=== PATIENT | female | born 1980 | race Caucasian/White ===

== ENCOUNTER 2022-12-06 09:50 | Outpatient (AMB) | payer OTHER, SELFPAY ==
--- NOTE | 2022-12-06 10:18 | MHC.PC.OV ---
Vital Signs 12/06/22 10:44 Height 6 ft Weight 216 lb BMI 29.3 BP 144/98 H Blood Pressure Location Lt brachial Position Sitting Pulse 82 Pulse Source Pulse Oximeter Pulse Oximetry (%) 99 Oxygen Delivery Method Room Air Intake Visit Reasons: New patient-BP, PE Intake Note: Pt is here today as a new patient b/p and PE Allergies DAIRY PRODUCTS Adverse Reaction (Unknown, Uncoded 01/24/23 11:24) sensitivity Medication List - Last Reconciled 01/24/23 by Ewa Cano MD bupropion HCl 300 mg PO DAILY clonazepam 0.5 mg PO BID PRN dextroamphetamine-amphetamine 20 mg 1 tab PO BID losartan 50 mg PO DAILY oxcarbazepine 300 mg PO BID Tobacco use date assessed: 12/06/22 Dental Screening Dental Screen Date: 12/06/22 Did you have a dental visit in the last 12 months?: No Was dental information given to patient?: Patient has dentist HPI New patient-BP, PE HPI Details 42-year-old lady, new to practice, here today to establish care with new PCP and for physical exam. She has anxiety depression, and states that she has been diagnosed to have ADD currently on bupropion 300 mg daily, clonazepam 0.5 mg b.i.d. as needed for acute anxiety attacks and Adderall 20 mg 1 tablet twice a day , and oxcarbazepine 600 mg 1 tablet p.o. b.i.d., previously was being seen by Kristen Foster. FORMERLY [facility], [facility]1983 Medical History (Updated 01/05/23 @ 10:35 by Belia Madsen MD) Family history of thyroid disorder Essential hypertension Lumbago with sciatica, right side Anxiety and depression ADD (attention deficit disorder) Surgical History (Updated 12/06/22 @ 11:00 by Ewa Cano MD) Hx of tubal ligation Hx of reduction mammoplasty Family History (Updated 12/06/22 @ 11:07 by Ewa Cano MD) Father Substance use disorder Lung cancer Generalized anxiety disorder Mother Thyroid disorder Maternal Grandfather Alcoholic Paternal Grandfather Substance use disorder Brother Leukemia Housing: House Patient Tobacco Use Status: Former Tobacco user e-Cigarette/Vaping Use: Former Use service: No Current occupational status: student Cognitive needs: No Hearing needs: No Vision needs: No Female Reproductive History Menstrual Age of Menarche: 15 Duration of menses: 3-5 days Date of last menstrual period: 12/05/22 control method: permanent sterilization Permanent Sterilization: BT Questionnaire PHQ-9 Over the last 2 weeks, how often have you been bothered by any of the following problems? 1. Little interest or pleasure in doing things: not at all 2. Feeling down, depressed, or hopeless: several days 3. Trouble falling or staying asleep, or sleeping too much: not at all 4. Feeling tired or having little energy: several days 5. Poor appetite or overeating: not at all 6. Feeling bad about yourself - or that you are a failure or have let yourself or your family down: several days 7. Trouble concentrating on things, such as reading the newspaper or watching television: several days 8. Moving or speaking so slowly that other people could have noticed. Or the opposite - being so fidgety or restless that you have been moving around a lot more than usual: several days 9. Thoughts that you would be better off or of hurting yourself in some way: not at all Total score: 5 Depression Screening Interpretation: Positive (scarlett Foster NP) Depression Screening Follow-up: Existing condition and In treatment Depression Screening Done: Yes 04061 - PHQ-9 Billing: Yes Source: Developed by Drs. Jamil Holland, Elyse Knox, Michael Molina and colleagues, with an educational charanjit from [employer]. Thrive Questionnaire Date Thrive assessed: 12/06/22 I am a: Patient What is your living situation today?: I have a steady place to live Within the past 12 months, did the food you bought not last and you didn't have the money to get more?: Sometimes True Within the past 12 months, did you worry whether your food would run out before you got money to buy more?: Sometimes True Do you have trouble paying for medicines?: No Do you have trouble getting transportation to medical appointments?: No Do you have trouble paying your heating and electricity bill?: No Do you have trouble taking care of your child, family member or friend?: Yes Do you have trouble with day-to-day activities such as bathing, preparing meals, shopping, managing finances, etc.?: No Are you currently unemployed and looking for a job?: No Are you interested in more education?: No TASNEEM-7 AMB Questionnaire TASNEEM-7 Date TASNEEM - 7 assessed: 12/06/22 Feeling nervous, anxious, or on edge: 0 = Not at all Not being able to stop or control worryin = Several days Worrying too much about different things: 0 = Not at all Trouble relaxin = Not at all Being so restless that it is hard to sit still: 0 = Not at all Becoming easily annoyed or irritable: 0 = Not at all Feeling afraid as if something awful might happen: 0 = Not at all Total TASNEEM-7 score (0-4 normal; 5-9 mild; 10-14 moderate; 15-21 severe): 1 Source: Developed by Drs. Jamil Holland, Elyse Knox, Michael Molina and colleagues, with an educational charanjit from [employer]. TASNEEM-7 Assessment Billing TASNEEM-7 Assessment Tool: TASNEEM-7 Assessment 88602 Review of Systems Const Denies body aches, Denies fatigue, Denies fever(s), Denies headache(s) and Denies weakness Eyes Denies change in vision, Denies eye discharge and Denies itchy eyes ENT Denies dizziness, Denies headache(s), Denies nasal congestion, Denies nasal discharge and Denies sore throat Card Denies chest pain, Denies lightheadedness, Denies palpitations and Denies dyspnea Resp Denies chest congestion, Denies cough, Denies dyspnea and Denies wheezing GI Denies abdominal pain, Denies change in bowel habits and Denies heartburn Denies hematuria, Denies urinary frequency, Denies dysuria and Denies urinary urgency Musc Reports no additional complaints Skin/Breast Details: Tattoo left forearm Denies breast pain, Denies breast mass, Denies lesions and Denies rash Neuro Denies dizziness, Denies headache(s) and Denies weakness Psych Reports as per HPI Endo Denies fatigue, Denies polydipsia, Denies polyuria and Denies palpitations Tigre/Lymph Denies easy bruising Aller/Immun Denies itchy eyes, Denies seasonal rhinorrhea and Denies wheezing Physical exam (Primary Care) Vital Signs: Last Vital Signs Pulse 82 12/06/22 10:44 BP 144/98 H 12/06/22 10:44 Pulse Ox 99 12/06/22 10:44 Oxygen Delivery Method Room Air 12/06/22 10:44 BMI result Body Mass Index 29.3 Tobacco/Smoking Status: Tobacco use Status Tobacco use date assessed 12/06/22 12/06/22 10:47 Patient Tobacco Use Status Former Tobacco user 12/06/22 10:47 e-Cigarette/Vaping Use Former Use 12/06/22 10:47 PHQ-9: PHQ-9 Score PHQ-9: Total score 5 12/06/22 11:23 Depression Screening Interpretation: Positive (scarlett Foster NP) Depression Screening Follow-up: Existing condition and In treatment Thrive Assessment: Date of Thrive Assessment Date Thrive assessed 12/06/22 12/06/22 10:20 Const General: no acute distress and alert Nutritional Appearance: not obese Orientation/consciousness: patient oriented x3 HENMT Head: Yes normocephalic and Yes atraumatic Ears: external ears normal, TM's normal bilaterally and EAC's normal General nose exam: Normal external nose present and No nasal discharge present Face and sinus: Yes face symmetric Mouth: Normal oral and palatal mucosa present, lip normal, tongue normal, oropharynx normal and moist mucous membranes Eyes General: appearance normal, both eyes and all related structures Eyelids: Yes eyelids normal Conjunctivae: conjunctivae normal Sclerae: sclerae normal Pupils: Equal, round and reactive pupils present EOM: EOMs intact bilaterally Neck Neck: Yes full ROM, Yes no lymphadenopathy and Yes supple Thyroid: Thyroid normal Chest Breast/axilla palpation: normal palpation of the breasts Resp Effort & Inspection: normal respiratory effort and able to speak in complete sentences Auscultation: clear to auscultation bilaterally Cardio Rate: regular rate Rhythm: regular rhythm Heart sounds: S1 normal heart sound present and S2 normal heart sound present GI Palpation (GI): Soft to palpation, nontender, no guarding and no masses Auscultation: normal bowel sounds General: Yes no CVA tenderness Back/Spine/Pelvis Back: no CVA tenderness and No back tenderness Skin General skin exam: no rashes or lesions noted Neuro General: patient oriented x3, gait normal, moves all extremities, Normal light touch and pain sensation, no focal motor deficits and CN's II-XI intact bilaterally Cranial nerves: Yes Equal, round and reactive pupils present Cognition (Neuro): normal cognition Gait exam (Neuro): Normal gait present Motor exam (neuro): 5/5 motor strength present throughout Extrem General: Yes normal to inspection, Yes full ROM, Yes no joint enlargement, Yes no pedal edema and Yes normal gait Psych Appearance: grossly normal and well kempt Mental Status: mental status grossly normal Speech and movement: Normal speech and movement present Affect: normal affect Attitude: cooperative Thought process: Normal thought process present Thought content: Normal thought content present Insight: Good insight present (Psych) Judgement: Good judgement present (Psych) Office Procedures Flu Questionnaire Does the patient have a severe egg allergy?: No Does the patient have severe life threatening allergies?: No Does the patient have a fever or illness today?: No Has the patient ever had Guillain-[place] Syndrome?: No Has the patient ever had any past reaction to a flu shot?: No Immunizations flu vacc [id number] 6mos up(PF) 60 mcg(15 mcgx4)/0.5 mL IM syringe Performing Provider: Ewa Cano MD Performing Location: [facility] Administered by: Annette Perez CMA on 12/06/22 11:28 Dose Route Admin Location Dispensed Lot Number Expiration Date [employer] Worker 0.5 mL IM Right Deltoid 0.5 mL [id number] 09/02/23 [id number] [employer] VIS Given Date VIS Provided VIS Publication Date 12/06/22 Single Vaccine 20 Eligibility Eligibility Date Funding Source Not [facility] Eligible 12/06/22 Private Assessment and Plan Assessment & Plan (1) Anxiety and depression: Code(s): F41.9 - Anxiety disorder, unspecified; F32.A - Depression, unspecified Plan: Currently being followed by Psychiatry (2) ADD (attention deficit disorder): Code(s): F98.8 - Other specified behavioral and emotional disorders with onset usually occurring in childhood and adolescence Qualifiers: Attention deficit-hyperactivity disorder type: unspecified Hyperactivity presence: present Qualified Code(s): F90.9 - Attention-deficit hyperactivity disorder, unspecified type Plan: Followed by psychiatry (3) Lumbago with sciatica, right side: Code(s): M54.41 - Lumbago with sciatica, right side Qualifiers: Back pain laterality: right Chronicity: unspecified Qualified Code(s): M54.41 - Lumbago with sciatica, right side Plan: Advised to take [id number] Tylenol 650 mg 1 tablet every 8 hours as needed for pain, do stretching exercises. Referred for physical therapy (4) Essential hypertension: Code(s): I10 - Essential (primary) hypertension Plan: Started on losartan 50 mg 1 tablet daily. Blood pressure goal is less than 130/80. Reinforced importance of following a low sodium diet, getting regular exercise, and lowering stress levels. 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 Recommended dental visit every 6 months and regular eye exams, at least every 2 years. Take adequate calcium in diet and vitamin-D 3 at 2000 IU per cap once a day, in addition to weight-bearing exercises to help maintain good muscle tone and weight control. Instructed to do self-breast exam, and recommended to get yearly mammogram, ordered today. Referred to [facility] [place] [place] [facility] for routine Pap and pelvic exam. Flu vaccine given today. Reminded to get her COVID booster. Orders: Orders AMB EKG-In Office 12/06/22 Z13.6 - Encounter for screening for cardiovascular disorders, I10 - Essential (primary) hypertension Lipid Panel 12/06/22 I10 - Essential (primary) hypertension, F98.8 - Other specified behavioral and emotional disorders with onset usually occurring in childhood and adolescence, Z83.49 - Family history of other endocrine, nutritional and metabolic diseases Comprehensive [place]. Panel Fast 12/06/22 I10 - Essential (primary) hypertension, F98.8 - Other specified behavioral and emotional disorders with onset usually occurring in childhood and adolescence, Z83.49 - Family history of other endocrine, nutritional and metabolic diseases PT Evaluation and Treatment 12/06/22 M54.41 - Lumbago with sciatica, right side MM screening mammo BI 12/06/22 Z12.31 - Encounter for screening mammogram for malignant neoplasm of breast TSH reflex Free T4 12/06/22 I10 - Essential (primary) hypertension, F98.8 - Other specified behavioral and emotional disorders with onset usually occurring in childhood and adolescence, Z83.49 - Family history of other endocrine, nutritional and metabolic diseases Influenza [id number] Immunization 12/06/22 Z23 - Encounter for immunization Referrals A AND P TECHNICIAN Referral Z12.4 - Encounter for screening for malignant neoplasm of cervix Medications: New losartan 50 mg PO DAILY 30 tabs 2RF Coding Level of Care Code New Pt Prev Care 40-64y(94038) Diagnoses Anxiety and depression F41.9; F32.A Attention deficit hyperactivity disorder (ADHD), unspecified ADHD type F90.9 Attention deficit-hyperactivity disorder type: unspecified Hyperactivity presence: present Right-sided low back pain with right-sided sciatica, unspecified chronicity M54.41 Back pain laterality: right Chronicity: unspecified Essential hypertension I10 Cervical cancer screening Z12.4 Flu vaccine need Z23 Annual visit for general adult medical examination with abnormal findings Z00.01 Additional Codes TASNEEM-7 Assessment Billing - TASNEEM-7 Assessment Tool: TASNEEM-7 Assessment 34908 ([id number])
[2022-12-06 10:44] VITALS: BP 144/98; PULSE 82; O2SAT 99; BMI 29.3
== END 2022-12-06 11:39 | disposition home or self-care (01) ==
PROVIDERS: PCP Family Medicine; Visit Provider Internal Medicine
DX: Z23 Encounter for immunization (principal)
CPT/HCPCS: 90471; 90686; 99386

== ENCOUNTER 2022-12-28 12:25 | Outpatient (REF) | payer OTHER, SELFPAY ==
--- NOTE | ~2022-12-28 | MM_ITS ---
EXAMINATION: MM SCREENING DIGITAL BREAST TOMOSYNTHESIS, BILATERAL CLINICAL INFORMATION: Screening. Asymptomatic. COMPARISON: Mammography: This is a baseline study. TECHNIQUE: Digital breast tomosynthesis is performed in both the craniocaudal and mediolateral oblique views along with computer-aided detection (CAD). Synthesized 2D images are generated from the tomosynthesis. FINDINGS: There are scattered areas of fibroglandular density (ACR BI-RADS breast composition Category b). In the lower outer quadrant of the left breast, in the anterior depth, there are grouped calcifications which warrant additional mammographic imaging magnification. In the right breast, there are no significant masses, abnormal calcifications, or other abnormalities. MM/MM tomosynthesis screening BI IMPRESSION: Grouped calcifications of the left breast warrants additional mammographic imaging magnification. No mammographic signs of malignancy right breast. ASSESSMENT: BI-RADS BI-RADS 0 - Incomplete: Needs additional Imaging. RECOMMENDATION: Additional views of the left breast. Radiology department staff will contact the patient for additional imaging. Additional Imaging required This examination should not preclude the clinical evaluation of a suspicious palpable abnormality. This patient's information was entered into a reminder system with a target due date for their next mammogram.
== END 2022-12-28 12:26 | disposition home or self-care (01) ==
LOC: HO.MAMMO 12:25
PROVIDERS: PCP Internal Medicine; Visit Provider Internal Medicine
DX: Z12.31 Encounter for screening mammogram for malignant neoplasm of breast (principal)
CPT/HCPCS: 77063; 77067

== ENCOUNTER → 2022-12-28 12:30 | Outpatient (BNV) | payer OTHER, SELFPAY | PROVIDERS: PCP Internal Medicine; Visit Provider Radiology Diagnostic Radiology | DX: Z12.31 Encounter for screening mammogram for malignant neoplasm of breast (principal) | CPT/HCPCS: 77063; 77067 ==

== ENCOUNTER 2023-01-04 12:27 | Outpatient (REF) | payer OTHER, SELFPAY ==
[2023-01-04 16:36] LABS: Alanine Aminotransferase 17 U/L (0-31); Albumin Level 4.2 g/dL (3.5-5.0); Alkaline Phosphatase 75 U/L (39-117); Anion Gap 10 (12-20); Aspartate Amino Transferase 25 U/L (5-31); Bilirubin Total 0.4 mg/dL (0.0-1.0); Blood Urea Nitrogen 6 mg/dL (9-16); Calcium 9.1 mg/dL (8.4-10.2); Carbon Dioxide 25 mmol/L (22-29); Chloride 94 mmol/L (96-108); Cholesterol 208 mg/dL (<200); Estimated Glomerular Filt Rate > 60; Glucose Fasting 82 mg/dL (60-99); HDL Cholesterol 72 mg/dL (>40); LDL Cholesterol Calculated 125 mg/dL (<100); Potassium 4.9 mmol/L (3.3-5.1); Sodium 124 mmol/L (135-145); Total Protein 7.1 g/dL (6.5-8.0); Triglycerides 55 mg/dL (<150)
[2023-01-04 16:51] LABS: TSH reflex Free T4 0.66 uIU/mL (0.32-4.0)
== END 2023-01-04 12:28 | disposition home or self-care (01) ==
LOC: HO.HMGCLDS 12:27
PROVIDERS: PCP Internal Medicine; Visit Provider Internal Medicine
DX: I10 Essential (primary) hypertension (principal); F98.8 Other specified behavioral and emotional disorders with onset usually occurring in childhood and adolescence; Z83.49 Family history of other endocrine, nutritional and metabolic diseases
CPT/HCPCS: 36415; 80053; 80061; 84443

== ENCOUNTER 2023-01-05 13:25 | Outpatient (REF) | payer OTHER, SELFPAY ==
[2023-01-05 16:20] LABS: Anion Gap 13 (12-20); Carbon Dioxide 25 mmol/L (22-29); Chloride 91 mmol/L (96-108); Potassium 4.7 mmol/L (3.3-5.1); Sodium 124 mmol/L (135-145)
== END 2023-01-05 13:26 | disposition home or self-care (01) ==
LOC: HO.HMGCLDS 13:25
PROVIDERS: PCP Internal Medicine; Visit Provider Internal Medicine
DX: E87.1 Hypo-osmolality and hyponatremia (principal)
CPT/HCPCS: 36415; 80051

== ENCOUNTER 2023-01-18 09:00 | Outpatient (REF) | payer OTHER, SELFPAY ==
--- NOTE | ~2023-01-18 | MM_ITS ---
EXAMINATION: MM DIAGNOSTIC DIGITAL MAMMOGRAPHY, LEFT CLINICAL INFORMATION: Calcifications seen left breast on screening exam. COMPARISON: Mammography: 10/28/2022 TECHNIQUE: Digital mammography is performed utilizing spot magnification left CC and mediolateral views. FINDINGS: There are scattered areas of fibroglandular density (ACR BI-RADS breast composition Category b). There are calcifications in the lower outer quadrant of the left breast, anterior depth, which are very loosely grouped, and have a classically benign appearance. There are no linear or branching forms, and there is no suspicious distribution. These findings are benign. No further follow-up recommended. MM/MM diagnostic mammo unilat LT IMPRESSION: No findings suspicious for malignancy left breast. Benign calcifications as detailed, no further follow-up recommended. ASSESSMENT: BI-RADS BI-RADS 2 - Benign Findings RECOMMENDATION: 1 year F/U This patient's information was entered into a reminder system with a target due date for their next mammogram.
== END 2023-01-18 09:01 | disposition home or self-care (01) ==
LOC: HO.MAMMO 09:00
PROVIDERS: PCP Internal Medicine; Visit Provider Internal Medicine
DX: R92.1 Mammographic calcification found on diagnostic imaging of breast (principal)
CPT/HCPCS: 77062; 77065

== ENCOUNTER 2023-01-24 11:16 | Outpatient (AMB) | payer OTHER, SELFPAY ==
[2023-01-24 11:21] VITALS: BP 125/80; PULSE 76; O2SAT 100; BMI 27.2
--- NOTE | 2023-01-24 11:21 | A.OFFPC_ITS ---
Vital Signs 01/24/23 11:21 Height 6 ft Weight 200 lb 6 oz BMI 27.2 BP 125/80 Blood Pressure Location Rt brachial Position Sitting Pulse 76 Pulse Source Pulse Oximeter Pulse Oximetry (%) 100 Oxygen Delivery Method Room Air Intake Visit Reasons: 1M follow up Intake Note: pt is here for a 1 month follow up to repeat labs Allergies DAIRY PRODUCTS Adverse Reaction (Unknown, Uncoded 01/27/23 00:59) sensitivity Medication List - Last Reconciled 01/24/23 by Ewa Cano MD bupropion HCl 300 mg PO DAILY clonazepam 0.5 mg PO BID PRN dextroamphetamine-amphetamine 20 mg 1 tab PO BID losartan 50 mg PO DAILY oxcarbazepine 300 mg PO BID Tobacco use date assessed: 01/24/23 Dental Screening Dental Screen Date: 01/24/23 Did you have a dental visit in the last 12 months?: No Did you have a dental problem in the last 6 months where you did not have access to dental care?: No Was dental information given to patient?: Yes HPI 1M follow up HPI Details 42-year-old lady here today for follow-u p after recent admission for hyponatremia. She was given fluid restriction, and was felt that her ox carbamazepine was to recent for her decreasing sodium level and her dose was decreased to half during her admission. Patient states that she initially felt unwell with her can anxiety attacks after her dose was decreased abruptly. Patient however states that she is feeling much better on current dose of oxcarbazepine. She still is currently taking bupropion and clonazepam at the same dose as well as her Adderall. Has been seen by her psychiatrist after discharge and was continued on current medications. She also has strong family history of her hypothyroidism, and is requesting that she be checked with regards to her thyroid levels. [facility] Medical History (Updated 01/24/23 @ 11:59 by Ewa Cano MD) History of vitamin D deficiency Family history of thyroid disorder Essential hypertension Lumbago with sciatica, right side Anxiety and depression ADD (attention deficit disorder) Surgical History (Updated 12/06/22 @ 11:00 by Ewa Cano MD) Hx of tubal ligation Hx of reduction mammoplasty Family History (Updated 12/06/22 @ 11:07 by Ewa Cano MD) Father Substance use disorder Lung cancer Generalized anxiety disorder Mother Thyroid disorder Maternal Grandfather Alcoholic Paternal Grandfather Substance use disorder Brother Leukemia Housing: House Patient Tobacco Use Status: Former Tobacco user e-Cigarette/Vaping Use: Former Use service: No Current occupational status: student Cognitive needs: No Hearing needs: No Vision needs: No Female Reproductive History Menstrual Age of Menarche: 15 Questionnaire PHQ-9 Over the last 2 weeks, how often have you been bothered by any of the following problems? 1. Little interest or pleasure in doing things: not at all 2. Feeling down, depressed, or hopeless: several days 3. Trouble falling or staying asleep, or sleeping too much: not at all 4. Feeling tired or having little energy: several days 5. Poor appetite or overeating: not at all 6. Feeling bad about yourself - or that you are a failure or have let yourself or your family down: several days 7. Trouble concentrating on things, such as reading the newspaper or watching television: several days 8. Moving or speaking so slowly that other people could have noticed. Or the opposite - being so fidgety or restless that you have been moving around a lot more than usual: several days 9. Thoughts that you would be better off or of hurting yourself in some way: not at all Total score: 5 Depression Screening Interpretation: Positive (seedarleen Foster NP) Depression Screening Follow-up: Existing condition and In treatment Depression Screening Done: Yes 26474 - PHQ-9 Billing: Yes Source: Developed by Drs. Jamil Holland, Elyse Knox, Michael Molina and colleagues, with an educational charanjit from [employer]. Thrive Questionnaire Date Thrive assessed: 12/06/22 AUDIT C Alcohol Use Questionnaire (AUDIT-C) 1. How often do you have a drink containing alcohol?: Never Total Score: 0 TASNEEM-7 AMB Questionnaire TASNEEM-7 Date TASNEEM - 7 assessed: 01/24/23 Feeling nervous, anxious, or on edge: 0 = Not at all Not being able to stop or control worryin = Several days Worrying too much about different things: 0 = Not at all Trouble relaxin = Not at all Being so restless that it is hard to sit still: 0 = Not at all Becoming easily annoyed or irritable: 0 = Not at all Feeling afraid as if something awful might happen: 0 = Not at all Total TASNEEM-7 score (0-4 normal; 5-9 mild; 10-14 moderate; 15-21 severe): 1 Source: Developed by Drs. Jamil Holland, Elyse Knox, Michael Molina and colleagues, with an educational charanjit from [employer]. TASNEEM-7 Assessment Billing TASNEEM-7 Assessment Tool: TASNEEM-7 Assessment 30543 Review of Systems Const Denies body aches, Denies fatigue and Denies headache(s) Eyes Denies change in vision ENT Denies dizziness, Denies headache(s), Denies nasal congestion, Denies nasal discharge and Denies sore throat Card Denies chest pain, Denies lightheadedness, Denies palpitations and Denies dyspnea Resp Denies chest congestion, Denies cough, Denies dyspnea and Denies wheezing GI Denies abdominal pain, Denies change in bowel habits and Denies heartburn Denies urinary frequency, Denies dysuria and Denies urinary urgency Musc Reports no additional complaints Skin/Breast Details: Tattoo left forearm Denies breast pain, Denies breast mass, Denies lesions and Denies rash Neuro Denies dizziness and Denies headache(s) Psych Reports as per HPI Endo Denies fatigue, Denies polydipsia, Denies polyuria and Denies palpitations Tigre/Lymph Denies easy bruising Aller/Immun Denies seasonal rhinorrhea and Denies wheezing Physical exam (Primary Care) Vital Signs: Last Vital Signs Pulse 76 01/24/23 11:21 BP 125/80 01/24/23 11:21 Pulse Ox 100 01/24/23 11:21 Oxygen Delivery Method Room Air 01/24/23 11:21 BMI result Body Mass Index 27.2 Tobacco/Smoking Status: Tobacco use Status Tobacco use date assessed 01/24/23 01/24/23 11:28 Patient Tobacco Use Status Former Tobacco user 01/24/23 11:21 e-Cigarette/Vaping Use Former Use 01/24/23 11:21 Depression Screening Interpretation: Positive (seedarleen Foster NP) Depression Screening Follow-up: Existing condition and In treatment Thrive Assessment: Date of Thrive Assessment Date Thrive assessed 12/06/22 01/24/23 11:21 Const General: no acute distress and alert Nutritional Appearance: not obese Orientation/consciousness: patient oriented x3 [facility] Head: Yes normocephalic and Yes atraumatic Ears: external ears normal General nose exam: Normal external nose present Face and sinus: Yes face symmetric Mouth: Normal oral and palatal mucosa present, oropharynx normal and moist mucous membranes Eyes General: appearance normal, both eyes and all related structures Neck Neck: Yes full ROM, Yes no lymphadenopathy and Yes supple Thyroid: Thyroid normal Chest Breast/axilla palpation: normal palpation of the breasts Resp Effort & Inspection: normal respiratory effort and able to speak in complete sentences Auscultation: clear to auscultation bilaterally Cardio Rate: regular rate Rhythm: regular rhythm Heart sounds: S1 normal heart sound present and S2 normal heart sound present GI Palpation (GI): Soft to palpation, nontender, no guarding and no masses Auscultation: normal bowel sounds General: Yes no CVA tenderness Back/Spine/Pelvis Back: no CVA tenderness and No back tenderness Skin General skin exam: no rashes or lesions noted Neuro General: patient oriented x3, gait normal, moves all extremities, Normal light touch and pain sensation, no focal motor deficits and CN's II-XI intact bilaterally Cognition (Neuro): normal cognition Gait exam (Neuro): Normal gait present Motor exam (neuro): 5/5 motor strength present throughout Extrem General: Yes normal to inspection, Yes full ROM, Yes no joint enlargement, Yes no pedal edema and Yes normal gait Psych Appearance: grossly normal and well kempt Mental Status: mental status grossly normal Speech and movement: Normal speech and movement present Affect: normal affect Attitude: cooperative Thought process: Normal thought process present Thought content: Normal thought content present Assessment and Plan Assessment & Plan (1) Low sodium levels: Code(s): E87.1 - Hypo-osmolality and hyponatremia Plan: Will repeat another basic metabolic panel (2) Family history of thyroid disorder: Code(s): Z83.49 - Family history of other endocrine, nutritional and metabolic diseases Plan: Ordered TSH and free T4 levels (3) History of vitamin D deficiency: Code(s): Z86.39 - Personal history of other endocrine, nutritional and metabolic disease Plan: Will repeat another vitamin-D level. In the meantime, advised to start taking [id number] vitamin D3 at 2000 units daily Orders: Orders Vitamin D 25-OH Total 01/24/23 E87.1 - Hypo-osmolality and hyponatremia, Z83.49 - Family history of other endocrine, nutritional and metabolic diseases, Z86.39 - Personal history of other endocrine, nutritional and metabolic disease Basic Metabolic Panel Fasting 01/24/23 E87.1 - Hypo-osmolality and hyponatremia, Z83.49 - Family history of other endocrine, nutritional and metabolic diseases, Z86.39 - Personal history of other endocrine, nutritional and metabolic disease Coding Level of Care Code Est Pt Level 3 (59941) Diagnoses Low sodium levels E87.1 Family history of thyroid disorder Z83.49 History of vitamin D deficiency Z86.39 Additional Codes TASNEEM-7 Assessment Billing - TASNEEM-7 Assessment Tool: TASNEEM-7 Assessment 04436 ([id number])
== END 2023-01-24 12:20 | disposition home or self-care (01) ==
PROVIDERS: PCP Internal Medicine; Visit Provider Internal Medicine
DX: E87.1 Hypo-osmolality and hyponatremia (principal); Z83.49 Family history of other endocrine, nutritional and metabolic diseases; Z86.39 Personal history of other endocrine, nutritional and metabolic disease
CPT/HCPCS: 99213

== ENCOUNTER 2023-01-24 12:18 | Outpatient (REF) | payer OTHER, SELFPAY ==
[2023-01-24 13:43] LABS: Anion Gap 12 (12-20); Blood Urea Nitrogen 11 mg/dL (9-16); Calcium 9.7 mg/dL (8.4-10.2); Carbon Dioxide 27 mmol/L (22-29); Chloride 103 mmol/L (96-108); Estimated Glomerular Filt Rate > 60; Glucose Fasting 97 mg/dL (60-99); Potassium 4.8 mmol/L (3.3-5.1); Sodium 137 mmol/L (135-145)
[2023-01-24 14:00] LABS: Vitamin D 25-OH Total 26.9 ng/mL (>30)
== END 2023-01-24 12:19 | disposition home or self-care (01) ==
LOC: HO.HMGCLDS 12:18
PROVIDERS: PCP Internal Medicine; Visit Provider Internal Medicine
DX: E87.1 Hypo-osmolality and hyponatremia (principal); Z86.39 Personal history of other endocrine, nutritional and metabolic disease; Z83.49 Family history of other endocrine, nutritional and metabolic diseases
CPT/HCPCS: 36415; 80048; 82306

== ENCOUNTER 2023-04-06 09:19 | Outpatient (REF) | payer OTHER, SELFPAY ==
[2023-04-06 11:45] LABS: MANUAL DIFF FLAG NO
[2023-04-06 11:47] LABS: Basophils Absolute Auto 0.1 X10*3/uL (0.0-0.2); Basophils Percent Auto 1.1 % (0-2); Eosinophils Absolute Auto 0.1 X10*3/uL (0.0-0.4); Hematocrit 38.9 % (37.0-47.0); Hemoglobin 13.7 g/dl (12.0-16.0); Imm Gran Abs Auto 0.02 X10*3/uL (0.00-0.03); Imm Gran Pct Auto 0.3 % (0.0-0.4); Lymphocytes Absolute Auto 1.6 X10*3/uL (1.2-4.9); Lymphocytes Percent Auto 25.6 % (20-40); Mean Corpuscular HGB Conc 35.2 g/dl (31.0-35.0); Mean Corpuscular Hemoglobin 31.1 pg (27.0-33.0); Mean Corpuscular Volume 88.4 fL (80.0-98.0); Mean Platelet Volume 11.2 fL (9.4-12.3); Monocytes Absolute Auto 0.6 X10*3/uL (0.1-1.2); Monocytes Percent Auto 10.4 % (2-11); Neutrophils Absolute Auto 3.8 x10*3/uL (2.0-8.3); Neutrophils Percent Auto 61.6 % (45-73); Platelet Count 253 X10*3/uL (160-400); Red Cell Distribution Width 12.7 % (11.0-16.0); White Blood Count 6.2 X10*3/uL (4.8-10.8)
[2023-04-06 12:39] LABS: Alanine Aminotransferase 17 U/L (0-31); Alkaline Phosphatase 73 U/L (39-117); Anion Gap 13 (12-20); Aspartate Amino Transferase 22 U/L (5-31); Bilirubin Total 0.4 mg/dL (0.0-1.0); Blood Urea Nitrogen 10 mg/dL (9-16); Carbon Dioxide 24 mmol/L (22-29); Chloride 96 mmol/L (96-108); Cholesterol 187 mg/dL (<200); Estimated Glomerular Filt Rate > 60; Glucose Fasting 76 mg/dL (60-99); HDL Cholesterol 68 mg/dL (>40); LDL Cholesterol Calculated 112 mg/dL (<100); Potassium 4.4 mmol/L (3.3-5.1); Sodium 129 mmol/L (135-145); Total Protein 7.1 g/dL (6.5-8.0); Triglycerides 39 mg/dL (<150)
[2023-04-06 12:58] LABS: Vitamin D 25-OH Total 26.1 ng/mL (>30)
[2023-04-06 13:05] LABS: Folate 7.9 ng/mL (> or = 4.0); Vitamin B12 488 pg/mL (200-900)
== END 2023-04-06 09:20 | disposition home or self-care (01) ==
LOC: HO.HMGCLDS 09:19
PROVIDERS: PCP Internal Medicine; Referring Provider Nurse Practitioner Psychiatric/Mental Health; Visit Provider Internal Medicine
DX: I10 Essential (primary) hypertension (principal); D75.89 Other specified diseases of blood and blood-forming organs; Z86.39 Personal history of other endocrine, nutritional and metabolic disease; Z51.81 Encounter for therapeutic drug level monitoring
CPT/HCPCS: 36415; 80053; 80061; 82306; 82607; 82746; 85025

== ENCOUNTER 2023-04-06 13:41 | Outpatient (AMB) | payer OTHER, SELFPAY ==
--- NOTE | 2023-04-06 13:43 | A.OFFPC_ITS ---
Vital Signs 04/06/23 13:58 Height 6 ft Weight 210 lb BMI 28.5 BP 114/78 Blood Pressure Location Lt brachial Position Sitting Pulse 75 Pulse Source Pulse Oximeter Pulse Oximetry (%) 99 Oxygen Delivery Method Room Air Intake Visit Reasons: 2 Month F/U Allergies DAIRY PRODUCTS Adverse Reaction (Unknown, Uncoded 04/06/23 14:23) sensitivity Medication List - Last Reconciled 04/06/23 by Ewa Cano MD bupropion HCl 300 mg PO DAILY clonazepam 0.5 mg PO BID PRN dextroamphetamine-amphetamine 20 mg 1 tab PO BID losartan 50 mg PO DAILY oxcarbazepine 300 mg PO BID Tobacco use date assessed: 04/06/23 Dental Screening Dental Screen Date: 04/06/23 Did you have a dental visit in the last 12 months?: No Was dental information given to patient?: Patient declined HPI 2 Month F/U HPI Details 42-year-old lady with ADD, and anxiety d epression currently followed by psychiatry, here today for follow-up on of her hypertension. She has been taking losartan 50 mg daily with blood pressure controlled on present treatment. She had recent fasting labs which do showed presence of hyponatremia with serum sodium 129, better than last check and vitamin-D deficiency. She has been feeling well, with no nausea, no headache, confusion, no loss of energy fatigue or muscle weakness. [facility] Medical History (Updated 04/08/23 @ 20:40 by Ewa Cano MD) Vitamin D deficiency Macrocytosis without anemia Family history of thyroid disorder Essential hypertension Lumbago with sciatica, right side Anxiety and depression ADD (attention deficit disorder) Surgical History Hx of tubal ligation Hx of reduction mammoplasty Family History Father Substance use disorder Lung cancer Generalized anxiety disorder Mother Thyroid disorder Maternal Grandfather Alcoholic Paternal Grandfather Substance use disorder Brother Leukemia Social History Housing: House Patient Tobacco Use Status: Former Tobacco user e-Cigarette/Vaping Use: Former Use service: No Current occupational status: student Cognitive needs: No Hearing needs: No Vision needs: No Female Reproductive History Menstrual Age of Menarche: 15 Questionnaire PHQ-9 Over the last 2 weeks, how often have you been bothered by any of the following problems? 1. Little interest or pleasure in doing things: not at all 2. Feeling down, depressed, or hopeless: several days 3. Trouble falling or staying asleep, or sleeping too much: not at all 4. Feeling tired or having little energy: several days 5. Poor appetite or overeating: not at all 6. Feeling bad about yourself - or that you are a failure or have let yourself or your family down: not at all 7. Trouble concentrating on things, such as reading the newspaper or watching television: not at all 8. Moving or speaking so slowly that other people could have noticed. Or the opposite - being so fidgety or restless that you have been moving around a lot more than usual: not at all 9. Thoughts that you would be better off or of hurting yourself in some way: not at all Total score: 2 Depression Screening Interpretation: Positive Depression Screening Follow-up: Existing condition, In treatment and Community Mental Health Worker F/U (Followed by Olesya tucker) Depression Screening Done: Yes 34809 - PHQ-9 Billing: Yes Source: Developed by Drs. Jamil Holland, Elyse Knox, Michael Molina and colleagues, with an educational charanjit from [employer]. Thrive Questionnaire Date Thrive assessed: 04/06/23 I am a: Patient What is your living situation today?: I have a steady place to live Within the past 12 months, did the food you bought not last and you didn't have the money to get more?: Never true Within the past 12 months, did you worry whether your food would run out before you got money to buy more?: Never true Do you have trouble paying for medicines?: No Do you have trouble getting transportation to medical appointments?: No Do you have trouble paying your heating and electricity bill?: No Do you have trouble taking care of your child, family member or friend?: No Do you have trouble with day-to-day activities such as bathing, preparing meals, shopping, managing finances, etc.?: No Are you currently unemployed and looking for a job?: No Are you interested in more education?: No THRIVE Score: 0 AUDIT C Alcohol Use Questionnaire (AUDIT-C) 1. How often do you have a drink containing alcohol?: Never Total Score: 0 TASNEEM-7 AMB Questionnaire TASNEEM-7 Date TASNEEM - 7 assessed: 04/06/23 Feeling nervous, anxious, or on edge: 1 = Several days Not being able to stop or control worryin = Not at all Worrying too much about different things: 0 = Not at all Trouble relaxin = Not at all Being so restless that it is hard to sit still: 0 = Not at all Becoming easily annoyed or irritable: 1 = Several days Feeling afraid as if something awful might happen: 0 = Not at all Total TASNEEM-7 score (0-4 normal; 5-9 mild; 10-14 moderate; 15-21 severe): 2 Source: Developed by Drs. Jamil Holland, Elyse Knox, Michael Molina and colleagues, with an educational charanjit from [employer]. TASNEEM-7 Assessment Billing TASNEEM-7 Assessment Tool: TASNEEM-7 Assessment 69377 Review of Systems Const Denies body aches, Denies fatigue and Denies headache(s) Eyes Reports no additional complaints ENT Denies dizziness, Denies headache(s) and Denies nasal congestion Card Denies chest pain, Denies lightheadedness, Denies palpitations and Denies dyspnea Resp Denies chest congestion, Denies cough and Denies dyspnea GI Denies abdominal pain, Denies change in bowel habits and Denies heartburn Denies urinary frequency, Denies dysuria and Denies urinary urgency Musc Reports no additional complaints Skin/Breast Details: Tattoo left forearm Neuro Denies dizziness and Denies headache(s) Psych Reports as per HPI Endo Denies fatigue, Denies polydipsia, Denies polyuria and Denies palpitations Tigre/Lymph Denies easy bruising Physical exam (Primary Care) Vital Signs: Last Vital Signs Pulse 75 04/06/23 13:58 BP 114/78 04/06/23 13:58 Pulse Ox 99 04/06/23 13:58 Oxygen Delivery Method Room Air 04/06/23 13:58 BMI result Body Mass Index 28.5 Tobacco/Smoking Status: Tobacco use Status Tobacco use date assessed 04/06/23 04/06/23 13:44 Patient Tobacco Use Status Former Tobacco user 04/06/23 13:44 e-Cigarette/Vaping Use Former Use 04/06/23 13:44 PHQ-9: PHQ-9 Score PHQ-9: Total score 2 04/06/23 14:42 Depression Screening Interpretation: Positive Depression Screening Follow-up: Existing condition, In treatment and Community Mental Health Worker F/U (Followed by Olesya tucker) Thrive Assessment: Date of Thrive Assessment Date Thrive assessed 04/06/23 04/06/23 14:42 Const General: no acute distress and alert Nutritional Appearance: not obese Orientation/consciousness: patient oriented x3 [facility] Head: Yes normocephalic and Yes atraumatic Ears: external ears normal General nose exam: Normal external nose present Face and sinus: Yes face symmetric Mouth: Normal oral and palatal mucosa present, oropharynx normal and moist muco us membranes Eyes General: appearance normal, both eyes and all related structures Neck Neck: Yes full ROM, Yes no lymphadenopathy and Yes supple Thyroid: Thyroid normal Chest Breast/axilla palpation: normal palpation of the breasts Resp Effort & Inspection: normal respiratory effort and able to speak in complete sentences Auscultation: clear to auscultation bilaterally Cardio Rate: regular rate Rhythm: regular rhythm Heart sounds: S1 normal heart sound present and S2 normal heart sound present GI Palpation (GI): Soft to palpation, nontender, no guarding and no masses Auscultation: normal bowel sounds General: Yes no CVA tenderness Back/Spine/Pelvis Back: no CVA tenderness and No back tenderness Skin General skin exam: no rashes or lesions noted Neuro General: patient oriented x3, gait normal, moves all extremities, no focal motor deficits and CN's II-XI intact bilaterally Cognition (Neuro): normal cognition Gait exam (Neuro): Normal gait present Motor exam (neuro): 5/5 motor strength present throughout Extrem General: Yes normal to inspection, Yes full ROM, Yes no joint enlargement, Yes no pedal edema and Yes normal gait Psych Appearance: grossly normal and well kempt Mental Status: mental status grossly normal Speech and movement: Normal speech and movement present Affect: normal affect Attitude: cooperative Thought process: Normal thought process present Thought content: Normal thought content present Results Reviewed Results Reviewed: Name: Olesya Godwin Age/Sex: 42/F : 1980 Unit#: [id number] Attend Dr: Ewa Cano MD Re04/06/23 Status: REG REF Location: [facility] Disch: SPEC : [id number] OPHELIA: 04/06/23 STATUS: COMP REQ : [id number] RECD: 04/06/23-[address]: Ewa Cano MD COMP: 04/06/23 ENTERED: 04/06/23 [facility] DR: ORDERED: CBC Auto Diff Test Result Flag Reference WBC 6.2 4.8-10.8 X10*3/uL RBC 4.40 4.20-5.50 X10*6/uL HGB 13.7 12.0-16.0 g/dl HCT 38.9 37.0-47.0 % MCV 88.4 80.0-98.0 fL MCH 31.1 27.0-33.0 pg MCHC 35.2 H 31.0-35.0 g/dl RDW 12.7 11.0-16.0 % PLT 253 160-400 X10*3/uL MPV 11.2 9.4-12.3 fL Neut Pct Auto 61.6 45-73 % ImGran Pct Auto 0.3 0.0-0.4 % Lymp Pct Auto 25.6 20-40 % Mccormick Pct Auto 10.4 2-11 % Eos Pct Auto 1.0 0-4 % Baso Pct Auto 1.1 0-2 % NRBC Pct Auto 0.0 0.0-0.2 /100WBC ANC Neut Abs # 3.8 2.0-8.3 x10*3/uL ImGran Abs Auto 0.02 0.00-0.03 X10*3/uL Lymph Abs Auto 1.6 1.2-4.9 X10*3/uL Mccormick Abs Auto 0.6 0.1-1.2 X10*3/uL Eos Abs Auto 0.1 0.0-0.4 X10*3/uL Baso Abs Auto 0.1 0.0-0.2 X10*3/uL NRBC Abs Auto 0.000 0.0-0.012 X10*3/uL SPEC : [id number] OPEHLIA: 04/06/23 STATUS: COMP REQ : [id number] RECD: 04/06/23 [facility] DR: Ewa Cano MD COMP: 04/06/23 ENTERED: 04/06/23 [facility] DR: ORDERED: CMP Fast, Lipid Panel, Vitamin D 25-OH Test Result Flag Reference Sodium 129 L 135-145 mmol/L Potassium 4.4 3.3-5.1 mmol/L CL 96 96-108 mmol/L CO2 24 22-29 mmol/L Gap 13 12-20 BUN 10 9-16 mg/dL Creat 0.67 0.5-1.4 mg/dL EGFR > 60 NOTE: For -[place] individuals, multiply the result by 1.210. Chronic Kidney Disease: Estimated GFR < 60 mL/min/ 1.73m2 Severe Kidney Disease: Estimated GFR < 15 mL/min/1.73m2 FBS 76 60-99 mg/dL CA 9.0 # 8.4-10.2 mg/dL Total Bili 0.4 0.0-1.0 mg/dL AST (GOT) 22 5-31 U/L ALT (GPT) 17 0-31 U/L Protein, Total 7.1 6.5-8.0 g/dL Alb 4.0 3.5-5.0 g/dL Triglyceride 39 <150 mg/dL Desirable Triglyceride: less than 150 mg/dL Borderline High Triglyceride 150-199 mg/dL High Triglyceride: 200-499 mg/dL Very High Triglyceride: greater than or equal to 5OO mg/dL Cholesterol 187 <200 mg/dL Desirable Cholesterol: less than 200 mg/dL Borderline High Cholesterol: 200-239 mg/dL High Cholesterol: greater than 239 mg/dL LDL Calculated 112 H <100 mg/dL Desirable LDL: less than 100 mg/dL Near Optimal/Above Optimal LDL: 110-129 mg/dL Borderline High LDL: 130-159 mg/dL High LDL: 160-189 mg/dL Very High LDL: greater than or equal to 190 mg/dL HDL 68 >40 mg/dL Desirable HDL: greater than 40 mg/dL Note: This HDL assay may give artificially low results in patients with liver disease. Alk Phos 73 39-117 U/L Vit D 25-OH Tot 26.1 L >30 ng/mL Health Based Reference Values* < 20 ng/mL Deficient 20-30 ng/mL Insufficient > 30 ng/mL Sufficient Assessment and Plan Assessment & Plan (1) Essential hypertension: Code(s): I10 - Essential (primary) hypertension Plan: Blood pressure at goal of less than 130/80. Continue with current medication. Reinforced importance of following a low sodium diet, getting regular exercise, and lowering stress levels. (2) Vitamin D deficiency: Code(s): E55.9 - Vitamin D deficiency, unspecified Plan: Prescription sent for high-dose vitamin-D 3 supplements to take once a week for the next 3 months. (3) Low sodium levels: Code(s): E87.1 - Hypo-osmolality and hyponatremia Plan: Hyponatremia improving, felt most likely due to oxcarbazepine , with dose currently being adjusted by her psychiatrist Medications: New cholecalciferol (vitamin D3) 1,250 mcg PO QWEEK 3 months 13 caps 0RF Z86.39 - Personal history of other endocrine, nutritional and metabolic disease Refilled losartan 50 mg PO DAILY 90 tabs 3RF Coding Level of Care Code Est Pt Level 3 (93419) Diagnoses Essential hypertension I10 Vitamin D deficiency E55.9 Low sodium levels E87.1 Additional Codes TASNEEM-7 Assessment Billing - TASNEEM-7 Assessment Tool: TASNEEM-7 Assessment [id number] ([id number])
[2023-04-06 13:58] VITALS: BP 114/78; PULSE 75; O2SAT 99; BMI 28.5
== END 2023-04-06 16:14 | disposition home or self-care (01) ==
PROVIDERS: PCP Internal Medicine; Visit Provider Internal Medicine
DX: I10 Essential (primary) hypertension (principal); E55.9 Vitamin D deficiency, unspecified; E87.1 Hypo-osmolality and hyponatremia; Z86.39 Personal history of other endocrine, nutritional and metabolic disease
CPT/HCPCS: 99213

== ENCOUNTER 2024-01-03 | Outpatient (REF) | payer OTHER, SELFPAY | END 2024-01-03 00:01 | disposition home or self-care (01) | LOC: CF | PROVIDERS: Visit Provider Internal Medicine | DX: Z23 Encounter for immunization (principal); I10 Essential (primary) hypertension | CPT/HCPCS: 90471; 90656; 96127; 99212 ==

== ENCOUNTER 2024-01-03 12:22 | Outpatient (REF) | payer OTHER, SELFPAY ==
[2024-01-03 14:32] LABS: Alanine Aminotransferase 31 U/L (0-31); Anion Gap 12 (12-20); Aspartate Amino Transferase 37 U/L (5-31); Blood Urea Nitrogen 8 mg/dL (9-16); Calcium 8.8 mg/dL (8.4-10.2); Carbon Dioxide 23 mmol/L (22-29); Chloride 99 mmol/L (96-108); Estimated Glomerular Filt Rate > 60; Glucose Fasting 90 mg/dL (60-99); Potassium 4.2 mmol/L (3.3-5.1); Sodium 130 mmol/L (135-145)
[2024-01-03 14:37] LABS: Vitamin D 25-OH Total 66.9 ng/mL (>30)
== END 2024-01-03 12:23 | disposition home or self-care (01) ==
LOC: HO.HMGCLDS 12:22
PROVIDERS: PCP Internal Medicine; Visit Provider Internal Medicine
DX: E55.9 Vitamin D deficiency, unspecified (principal); E87.1 Hypo-osmolality and hyponatremia; I10 Essential (primary) hypertension
CPT/HCPCS: 36415; 80048; 82306; 84450; 84460

== ENCOUNTER 2024-01-03 13:22 | Outpatient (AMB) | payer OTHER, SELFPAY ==
[2024-01-03 13:30] VITALS: BP 116/80; PULSE 91; O2SAT 97; BMI 32.7
--- NOTE | 2024-01-03 13:30 | A.OFFPC_ITS ---
Vital Signs 01/03/24 13:30 Height 6 ft Weight 241 lb BMI 32.7 BP 116/80 Blood Pressure Location Rt brachial Position Sitting Pulse 91 Pulse Source Pulse Oximeter Pulse Oximetry (%) 97 Oxygen Delivery Method Room Air Intake Visit Reasons: Check on blood pressure and Losartan dose Intake Note: Pt is here today for her b/p check and losartan dose Allergies DAIRY PRODUCTS Adverse Reaction (Unknown, Uncoded 01/03/24 13:56) sensitivity Medication List - Last Reconciled 01/03/24 by Ewa Cano MD bupropion HCl XL 300 mg PO DAILY cholecalciferol (vitamin D3) 1,250 mcg PO QWEEK 3 months clonazepam 0.5 mg PO BID PRN dextroamphetamine-amphetamine 20 mg 1 tab PO BID losartan 50 mg PO DAILY oxcarbazepine 300 mg PO BID Tobacco use date assessed: 01/03/24 Dental Screening Dental Screen Date: 01/03/24 Did you have a dental visit in the last 12 months?: No Did you have a dental problem in the last 6 months where you did not have access to dental care?: No Was dental information given to patient?: No HPI Check on blood pressure and Losartan dose HPI Details 43-year-old lady with hypertension cole nunn on losartan 50 mg once a day, here today for follow-up on her blood pressure. She has been feeling well, no complaints at present time, blood pressure today is within normal limits. She had recent fasting labs done just drawn this morning with results still pending. She has been feeling well with no complaints at present time [facility] Medical History Vitamin D deficiency Macrocytosis without anemia Family history of thyroid disorder Essential hypertension Lumbago with sciatica, right side Anxiety and depression ADD (attention deficit disorder) Surgical History Hx of tubal ligation Hx of reduction mammoplasty Family History Father Substance use disorder Lung cancer Generalized anxiety disorder Mother Thyroid disorder Maternal Grandfather Alcoholic Paternal Grandfather Substance use disorder Brother Leukemia Social History Housing: House Patient Tobacco Use Status: Former Tobacco user e-Cigarette/Vaping Use: Former Use service: No Current occupational status: student Cognitive needs: No Hearing needs: No Vision needs: No Female Reproductive History Menstrual Age of Menarche: 15 Questionnaire PHQ-9 Over the last 2 weeks, how often have you been bothered by any of the following problems? 1. Little interest or pleasure in doing things: several days 2. Feeling down, depressed, or hopeless: several days 3. Trouble falling or staying asleep, or sleeping too much: not at all 4. Feeling tired or having little energy: several days 5. Poor appetite or overeating: several days 6. Feeling bad about yourself - or that you are a failure or have let yourself or your family down: not at all 7. Trouble concentrating on things, such as reading the newspaper or watching television: not at all 8. Moving or speaking so slowly that other people could have noticed. Or the opposite - being so fidgety or restless that you have been moving around a lot more than usual: not at all 9. Thoughts that you would be better off or of hurting yourself in some way: not at all Total score: 4 46762 - PHQ-9 Billing: Yes (sees Patricia Marshall at [facility] by telehealth) Source: Developed by Drs. Jamil Holland, Elyse Konx, Michael Molina and colleagues, with an educational charanjit from [employer]. Thrive Questionnaire Date Thrive assessed: 01/03/24 I am a: Patient What is your living situation today?: I have a steady place to live Within the past 12 months, did the food you bought not last and you didn't have the money to get more?: I choose not to answer this question Within the past 12 months, did you worry whether your food would run out before you got money to buy more?: Never true Do you have trouble paying for medicines?: No Do you have trouble getting transportation to medical appointments?: No Do you have trouble paying your heating and electricity bill?: No Do you have trouble taking care of your child, family member or friend?: No Do you have trouble with day-to-day activities such as bathing, preparing meals, shopping, managing finances, etc.?: No Are you currently unemployed and looking for a job?: No Are you interested in more education?: No Please select the resources that you would like help with: None Currently or been in a relationship where the following occur: No concerns reported THRIVE Score: 0 AUDIT C Alcohol Use Questionnaire (AUDIT-C) 1. How often do you have a drink containing alcohol?: Never Total Score: 0 TASNEEM-7 AMB Questionnaire TASNEEM-7 Date TASNEEM - 7 assessed: 04/06/23 Feeling nervous, anxious, or on edge: 1 = Several days Not being able to stop or control worryin = Several days Worrying too much about different things: 1 = Several days Trouble relaxin = Several days Being so restless that it is hard to sit still: 0 = Not at all Becoming easily annoyed or irritable: 1 = Several days Feeling afraid as if something awful might happen: 0 = Not at all Total TASNEEM-7 score (0-4 normal; 5-9 mild; 10-14 moderate; 15-21 severe): 5 Source: Developed by Drs. Jamil Holland, Elyse Knox, Michael Molina and colleagues, with an educational charanjit from [employer]. TASNEEM-7 Assessment Billing TASNEEM-7 Assessment Tool: TASNEEM-7 Assessment 70347 Review of Systems Const Denies fatigue and Denies headache(s) Eyes Denies change in vision ENT Denies dizziness, Denies headache(s) and Denies nasal congestion Card Denies chest pain, Denies lightheadedness, Denies palpitations and Denies dyspnea Resp Denies chest congestion, Denies cough and Denies dyspnea GI Denies abdominal pain, Denies change in bowel habits and Denies heartburn Denies urinary frequency, Denies dysuria and Denies urinary urgency Musc Reports no additional complaints Neuro Denies dizziness and Denies headache(s) Psych Reports as per HPI Endo Denies fatigue, Denies polydipsia, Denies polyuria and Denies palpitations Physical exam (Primary Care) Vital Signs: Last Vital Signs Pulse 91 01/03/24 13:30 BP 116/80 01/03/24 13:30 Pulse Ox 97 01/03/24 13:30 Oxygen Delivery Method Room Air 01/03/24 13:30 BMI result Body Mass Index 32.7 Tobacco/Smoking Status: Tobacco use Status Tobacco use date assessed 01/03/24 01/03/24 13:32 Patient Tobacco Use Status Former Tobacco user 01/03/24 13:32 e-Cigarette/Vaping Use Former Use 01/03/24 13:32 PHQ-9: PHQ-9 Score PHQ-9: Total score 4 01/03/24 14:04 Thrive Assessment: Date of Thrive Assessment Date Thrive assessed 01/03/24 01/03/24 13:32 Currently or been in a relationship where the following occur: No concerns reported Const General: no acute distress and alert Orientation/consciousness: patient oriented x3 HENMT Head: Yes normocephalic Face and sinus: Yes face symmetric Mouth: Normal oral and palatal mucosa present, oropharynx normal and moist muco us membranes Eyes General: appearance normal, both eyes and all related structures Neck Neck: Yes full ROM, Yes no lymphadenopathy and Yes supple Resp Effort & Inspection: normal respiratory effort and able to speak in complete sentences Auscultation: clear to auscultation bilaterally Cardio Rate: regular rate Rhythm: regular rhythm Heart sounds: S1 normal heart sound present and S2 normal heart sound present Skin General skin exam: no rashes or lesions noted Neuro General: patient oriented x3, gait normal, moves all extremities, no focal motor deficits and CN's II-XI intact bilaterally Cognition (Neuro): normal cognition Gait exam (Neuro): Normal gait present Motor exam (neuro): 5/5 motor strength present throughout Extrem General: Yes normal to inspection, Yes full ROM, Yes no joint enlargement, Yes no pedal edema and Yes normal gait Coding Level of Care Code Est Pt Level 3 (42266) Diagnoses Essential hypertension I10 Needs flu shot Z23 Additional Codes TASNEEM-7 Assessment Billing - TASNEEM-7 Assessment Tool: TASNEEM-7 Assessment 37892 ([id number]) Assessment & Plan Assessment & Plan (1) Essential hypertension: Code(s): I10 - Essential (primary) hypertension Category: Medical Plan: Blood pressure stable and controlled on losartan 50 mg per tablet. Will continue on present treatment. Reinforced importance of following a healthy diet and getting regular exercise. Had recent fasting labs done with results still pending (2) Needs flu shot: Code(s): Z23 - Encounter for immunization Plan: Flu vaccine given today Orders: Orders Influenza 8630-1900 Immunization Today Z23 - Encounter for immunization Medications: New Fluarix Triv [id number] (PF) (flu vacc [id number] 6mos up(PF)) 0.5 mL IM ONCE 0.5 mL 0RF NS Z23 - Encounter for immunization
== END 2024-01-03 14:24 | disposition home or self-care (01) ==
LOC: HO.HMCC 13:23
PROVIDERS: PCP Internal Medicine; Visit Provider Internal Medicine
DX: I10 Essential (primary) hypertension (principal); Z23 Encounter for immunization

== ENCOUNTER 2024-03-31 09:15 | Outpatient (REF) | payer OTHER, SELFPAY ==
[2024-03-31 14:35] LABS: Influenza A PCR NEGATIVE (Negative); Influenza B PCR NEGATIVE (Negative); Resp Syncy Virus RNA Qual PCR NEGATIVE (Negative); SARS COV2 PCR INHOUSE NEGATIVE (Negative)
--- OUTSIDE RECORDS SUMMARY | 2024-03-31 15:51 | XMS_ITS | Referral Summary ---
Author Organization [facility] Address [address] [place] [address] Care Team Providers Care Recycler Forklift Driver Truck Driver Name Role Phone Melania Cormier Primary Care Provider [phone] Allergies No known active allergies Medications buPROPion [...] on file Medical Devices Implanted Type Area Dowel Inserting Machine Operator Device Identifier Shelf Expiration Date Model / Serial / Lot Catheter Glidepath Hemodialysis 14.5fr X 23cm - [id number] Implanted:Qty: 1 on 05/18/2020 by Alexandro Espinal MD at [facility] Catheter Right: Chest Wall [employer] [id number] 12/02/2021 [id number] / / [id number] Insurance [facility] * Guarantor: Marrow Transplant, Unv Bone Account Type Relation to Patient Date of Phone Billing Address Donor Bone Marrow Recipient [address] [facility] Bone Marrow [place] [address] [facility] HMO/POS Care Teams Recycler Forklift Driver Truck Driver Relationship Specialty Start Date End Date Melania Cormier [address], [address] [place], [place] [phone] PCP - General Family Medicine 04/21/20
--- OUTSIDE RECORDS SUMMARY | 2024-03-31 15:51 | XMS_ITS | Clinical Summary ---
Author Organization [facility] Address [address] [place] [address] Care Team Providers Care Skein Tier Name Role Phone Melania Cormier Primary Care Provider [phone] Allergies No known active allergies Medications buPROPion [...] this topic Medical Devices Implanted Type Area Cage Cashier Device Identifier Shelf Expiration Date Model / Serial / Lot Catheter Glidepath Hemodialysis 14.5fr X 23cm - [id number] Implanted:Qty: 1 on 05/18/2020 by Alexandro Espinal MD at [facility] Catheter Right: Chest Wall [employer] [id number] 12/02/2021 [id number] / / [id number] Insurance [employer] * Guarantor: Marrow Transplant, Unv Bone Account Type Relation to Patient Date of Phone Billing Address Donor Bone Marrow Recipient [address] [facility] Bone Marrow [place] [address] [facility] HMO/POS Care Teams Skein Tier Relationship Specialty Start Date End Date Melania Cormier [facility] [address], [address] [place] [address] PCP - General Family Medicine 04/21/20
--- OUTSIDE RECORDS SUMMARY | 2024-03-31 15:51 | XMS_ITS | Encounter Summary ---
Author Organization [facility] Address [address] [place] [address] Care Team Providers Care Dining Service Supervisor Name Role Phone Rosalinda Cormierkatina Farley Primary Care Provider [phone] Encounter Details Date Type Department Care Team (Late st Contact Info) Description 05/07/2020 Orders Only [facility] [address] [place] [address] Mara Pate, PharmD [address] [place], [place] [id number] Social History Tobacco Use Types Packs/Day Years [...] on filedocumented in this encounter Care Teams Dining Service Supervisor Relationship Specialty Start Date End Date Melania Cormier [facility] [address] [place] [address], [address] [place] [address] PCP - General Family Medicine 04/21/20 documented as of this encounter
--- OUTSIDE RECORDS SUMMARY | 2024-03-31 15:51 | XMS_ITS | Encounter Summary ---
Author Organization [facility] Address [address] [place] [address] Care Team Providers Care Industrial Trainer Name Role Phone Melania Cormier Primary Care Provider [phone] Encounter Details Date Type Department Care Team (Late st Contact Info) Description 05/03/2020 Orders Only [facility] [address] [place], [place] [phone] Adia Mendenhall PA [address] [place] [address] Stem cell donor (Primary Dx) Social History [...] or need for rescheduling, in accordance with [facility] policies and [facility] guidelines. Request: Pheresis Catheter History of [...] of this encounter Results * Due to [place] state law, this organization might not be sharing negative HIV tests. * COVID-19 PCR, Pre-Procedure (Asymptomatic), GENERAL WAREHOUSE ASSOCIATE/OP/Saliva (05/14/2020 12:13 PM EST) SARS CoV 2 RNA, RT PCR Not Detected Not Detected ALICE HER QUANT STUDIO 05/14/2020 7:54 PM EST [facility] Comment:A Not Detected (Nega [...] determined by the Molecular Virology Laboratory at [facility] under CLIA [id number]. They have not been cleared or approved by the U.S. Food and Drug Administration (FDA). FDA Policy for Diagnostic Tests for Coronavirus Disease-2019 during the Public Health Emergency issued May 19, 2019, is followed. us [facility] BODY FLUIDS AND STOOLS ORDER CORWIN Final Result [facility] [address] [place] [address], documented in this encounter Visit Diagnoses Diagnosis Stem cell donor- Primary documented in this encounter Care Teams Industrial Trainer Relationship Specialty Start Date End Date Melania Cormier [facility] Medicine [address] [place] [address], [address] [place] [address] PCP - General Family Medicine 04/21/20 documented as of this encounter
--- OUTSIDE RECORDS SUMMARY | 2024-03-31 15:52 | XMS_ITS | Encounter Summary ---
Author Organization [facility] Address [phone] [facility] [place] [address] Care Team Providers Care Traffic Observer Name Role Phone Melania Cormier DO Unavailable Annette WallsM Unavailable Malou Peguero I BORDER PATROL AGENT Unavailable [phone] Demetrio Jacobo DO Unavailable Jamil Schneider MD Unavailable [phone] Pam Perez MD Unavailable Kristina Mendoza DO Unavailable Kris Altamirano MD Unavailable Jacob Schneider MD Unavailable [phone] Aaliyah Maldonado MD Unavailable [phone] Doug Shoemaker MD Unavailable Melania Cormier DO Primary Care Provider [phone] Encounter Details Date Type Department Care Team (Late st Contact Info) Description 08/16/2018 Procedure Pass OR Admitting Dept - Virtual Department [address] [place] [address] Social History Tobacco Use Types Packs/Day Years Used Date Smoking Tobacco: Former Cigarettes 0 07/19/1998 - 07/19/2005 Smokeless Tobacco: Never Alcohol Use Standard Drinks/Week Comments Yes 2 (1 standard drink = 0.6 oz pur e alcohol) Sex and Gender Information Value Date Recorded Sex Assigned at Not on file Gender Identity Not on file Sexual Orientation Not on file documented as of this encounter Plan of Treatment Not on file documented as of this encounter Visit Diagnoses Not on filedocumented in this encounter Additional Health Concerns Assessment Noted Time PHQ-2 Depression Total Score: 1 08/18/19 18 11:26 AM EDT documented as of this encounter Care Teams Traffic Observer Relationship Specialty Start Date End Date Melania Cormier DO [address] [address] PCP - General 12/19/16 Melania Cormier DO [address] [place] [address] Historical LMR Provider 12/18/16 Annette Walls CNM [address] [place] [address] Historical LMR Provider 12/18/16 2 Malou Peguero CNP [address] [address] Historical LMR Provider 12/18/16 03/12/21 Demetrio Jacobo DO [address] [place] [address] Orthopedics & Sports Medicine, [place] [address] Historical LMR Provider 12/18/16 03/12/21 Jamil Schneider MD [address] [place] [phone] [email or web address] Historical LMR Provider 12/18/16 03/12/21 Pam Perez MD 22 [facility] [address] [place] [address] [email or web address] Historical LMR Provider 12/18/16 Kristian Mendoza DO [address] [place] [address] Historical LMR Provider 12/18/16 2 Kris Altamirano MD [address] [facility] 7 [place] [phone] Historical LMR Provider 12/18/16 2 Jacob Schneider MD [address] [facility] [address] [place] [phone] [email or web address] Historical LMR Provider 12/18/16 03/12/21 Aaliyah Maldonado MD [address] [phone] Historical LMR Provider 12/18/16 2 Doug Shoemaker MD [address] [place] [address] Historical LMR Provider 12/18/16 2 documented as of this encounter Additional Source Comments The information contained in this document represents components of the legal health record. It is not the complete legal health record.[facility]
--- OUTSIDE RECORDS SUMMARY | 2024-03-31 15:52 | XMS_ITS | Clinical Summary ---
Author Organization [facility] Address [phone] [address] [place] [address] Care Team Providers Care Therapy Manager Name Role Phone Melania Cormier DO Unavailable [phone] Pam Perez MD Unavailable Melania Cormier DO Primary Care Provider [phone] Allergies Active Allergy Reactions Criticality Noted Date Comments Milk Containing Products (Dairy) Medications Medication Sig Dispensed Refills Start Date End Date Status ibuprofen (ADVIL,MOTRIN) 200 MG tablet Take 200 mg by mouth every 6 (six) hours as needed for pain (specific location in comments). Active polyethylene glycol (MIRALAX) 17 gram/dose powder Take 17 g by mouth daily as needed. Active docusate sodium (COLACE) 100 MG capsule Take 100 mg by mouth daily as needed. Active buPROPion (WELLBUTRIN XL) 150 MG ER 24 hr tablet Take 300 mg by mouth daily. Active dextroamphetamine 5 MG tablet Take 5 mg by mouth 2 (two) times a day. Active acetaminophen (TYLENOL) 325 mg tablet Take 2 tablets (650 mg total) by mouth every 4 (four) hours as needed for mild pain. 0 08/16/2018 Active ibuprofen (ADVIL,MOTRIN) 200 MG tablet Take 3 tablets (600 mg total) by mouth every 6 (six) hours as needed for pain (specific location in comments). 08/16/2018 Active oxyCODONE 5 MG immediate release tablet Take 1-2 tablets (5-10 mg total) by mouth every 4 (four) hours as needed for moderate pain. Partial fill ok 14 tablet 08/16/2018 Active LORazepam (ATIVAN) 0.5 MG tablet 02/13/2019 Active dextroamphetamine-amph etamine (ADDERALL) 20 mg Tab tablet 20 mg 2 (two) times a day. 02/12/2019 Active PROCTOSOL HC 2.5 % rectal creamIndications:Recta l spasm USE PER RECTUM 2 TIMES A DAY FOR 14 DAYS 28.35 g 1 03/07/2019 Active ondansetron (ZOFRAN-ODT) 8 MG disintegrating tablet Take 1 tablet (8 mg total) by mouth every 8 (eight) hours as needed for nausea. 10 tablet 02/24/2020 Active Active Problems Problem Noted Date Diagnosed Date Rectal spasm 12/11/2017 Assessment & Plan (12/11/2017 1:59 PM EDT): The patient presented today for evaluation of worsening anorectal pain and hemorrhoid flare-ups. She has rectal spasm and posterior anal fissure. Plan is for rectal exam under anesthesia. See plan for anal fissure. Chronic posterior anal fissure 12/11/2017 Assessment & Plan (12/11/2017 1:57 PM EDT): The patient has rectal spasm and posterior anal fissure on exam. Hemorrhoidal disease is minimal. She could barely tolerate digital exam today and could not tolerate anoscopy. Plan is for anorectal exam under anesthesia, anoscopy, possible Botox sphincterotomy, possible removal of hemorrhoids. I discussed the risks and benefits of rectal exam under anesthesia and anoscopy/sphincterotomy/hemorrhoidectomy including but not limited to the risks of infection, bleeding, recurrence, damage to anal sphincter, loss of continence, need for further surgery, and prolonged significant pain. The patient understands these risks and wishes to proceed. Weight gain 12/11/2017 Assessment & Plan (12/11/2017 2:15 PM EDT): The patient says she has been gaining weight and is bothered by this. We discussed some different methods for weight loss. Recurrent major depressive disorder 08/17/2017 Overview (08/17/2017): Kristen Evi psyNP Assessment & Plan (12/11/2017 2:00 PM EDT): The patient's depression may affect the presenting problem of surgical procedure (s) and may increase the risk of slow healing wound (s), infection (s) and the need to assure stability to optimize decisions and wound care. Stable and/or controlled chronic conditions may reduce complications associated with your chronic condition (s). GERD without esophagitis 05/17/2017 Assessment & Plan (12/11/2017 1:58 PM EDT): The patient's GERD may affect the presenting issue of surgical procedure (s) and may increase the risk of slow healing wound (s), infection (s), aspiration altering the effects of anesthetics, kidney, lung and/or heart problems. Stable and/or controlled chronic conditions may reduce complications associated with your chronic condition (s). Insomnia 05/17/2017 Immunizations Name Administration Dates Next Due COVID-19 (Pre-12/25) Pfizer Vaccine, mRNA, PF 07/13/2020,06/22/2020 DTaP 08/27/1986, 4,04/28/1982,02/17,1981 Hepatitis B 12/05/1993,02/03/1993,12/03/1992 Influenza Quadrivalent Prese rvative Free IM 03/04/2020 MMR 07/21/2011,01/17/1983 Meningococcal MCV4P 07/21/2011 PPD Test 10/28/2018 Polio - OPV 08/27/1986, 4,02/17/1982,11/25 Tdap 07/21/2011 Family History Medical History Relation Comments Anxiety disorder Father Gout Father Relation Status Comments Brother alive, healthy Father Alive alive, healthy, has gout Mother Alive alive healthy Sister alive, healthy Social History Tobacco Use Types Packs/Day Years Used Date Smoking Tobacco: Former Cigarettes 0 07/19/1998 - 07/19/2005 Smokeless Tobacco: Never Alcohol Use Standard Drinks/Week Comments Yes 2 (1 standard drink = 0.6 oz pur e alcohol) Education Answer Date Recorded Are you interested in more education? Not on keysha e 06/30/2022 Are you concerned about learning? Not on file 06/30/2022 No 06/30/2022 No 06/30/2022 Digital Access Answer Date Recorded No 07/31/2022 No 07/31/2022 No 07/31/2022 Reliable internet access at home? Not on file 07/31/2022 Device with a working camera? Not on file Sex and Gender Information Value Date Recorded Sex Assigned at Not on file Gender Identity Not on file Sexual Orientation Not on file Last Filed Vital Signs Vital Sign Reading Time Taken Comments Blood Pressure 132/100 03/21/2019 3:51 PM EST Pulse 98 03/21/2019 3:51 PM EST Temperature 37.6 ??C (99.6 ??F) 02/25/2020 9:35 AM ES T Respiratory Rate 14 08/16/2018 11:15 AM EDT Oxygen Saturation 97% 03/21/2019 3:51 PM EST Inhaled Oxygen Concentration - - Weight 107.5 kg (237 lb) 03/21/2019 3:51 PM EST Height 183.9 cm (6' 0.4 ) 03/17/2019 2:12 PM EST Body Mass Index 31.79 03/17/2019 2:12 PM EST Plan of Treatment Health Maintenance Due Date Last Done Comments SMOKING Hx and SMOKELESS TOBACCO SCREENING 1994 HEPATITIS B SCREENING 10/19/1999 HEPATITIS C SCREENING 10/19/1999 DEPRESSION SCREENING 08/17/2018 08/17/2017 Adult Td,Tdap Booster 07/20/2021 07/21/2011 MAMMOGRAM 2021 PAP SMEAR 03/20/2023 03/20/2018, 03/20/2018, 01/04/2012 INFLUENZA VACCINE (#1) 2023 03/04/2020 COVID-19 VACCINE (2023-2 5 season) 2023 07/11/2021, 07/13/2020, 06/22/2020 HEPATITIS B VACCINES Completed 12/05/1993, 02/03/1993, 12/03/1992 MENINGOCOCCAL VACCINES (ACWY) Aged Out 07/21/2011 No longer eligible based on patient's age to complete this topic HEPATITIS A VACCINES Aged Out No long er eligible based on patient's age to complete this topic HIB VACCINES Aged Out No longer eligi ble based on patient's age to complete this topic PNEUMOCOCCAL VACCINES (0-49 years) Aged Out No longer eligible b ased on patient's age to complete this topic Medical Devices Implanted Type Area Regulatory Compliance Director Device Identifier Shelf Expiration Date Model / Serial / Lot Jaw Procedures Procedure Name Priority Date/Time Associated Diagnosis Comments PAP TEST Routine 03/20/2018 12:00 AM EST from Last 3 Months or Most Recently Relevant to Health Maintenance Results * Pap Smear (03/20/2018 12:00 AM EST) 03/20/2018 03/21/2018 12: 48 PM EST Narrative SEE NARRATIVE - 03/28/2018 12:36 PM EST [address] [address] Office Spec: Lilli Bansal MD ?? RECOVERY ENGINEER Cytology Report FINAL DIAGNOSIS A. ??PAP SMEAR (SUREPATH) CE: SPECIMEN ADEQUACY: Satisfactory for evaluation; transformation zone present. INTERPRETATION: NEGATIVE FOR INTRAEPITHELIAL LESION OR MALIGNANCY. Electronically Signed Out By: ??LEYDA Villatoro(ASCP) Elisabet CRABTREE(ASCP) The Pap test is a screening test primarily for squamous cancers and precursors and has associated false-negative and false-positive results. ??New technologies such as liquid-based preparations may decrease but will not eliminate all false-negative results. ??Regular sampling and follow-up of unexplained clinical signs and symptoms are recommended to minimize false negative results. PROCEDURES/ADDENDA HPV Testing (Requested) Ordered Date: 03/21/2018 ? HPV Test Negative for high-risk human papillomavirus types 16, 18, 45 and the Other high risk probe set (Includes 31, 33, 35, 39, 51, 52, 56, 58, 59, 66, 68) by [employer] Onclarity HR-HPV analysis. Clinical correlation is advised. This HPV test was performed at [facility], [address] [place] [address]. This test has been FDA approved for SurePath cervical cytology specimens. The accuracy and precision of this test for all other specimen sources has been verified in the Cytopathology Laboratory of the [facility] and has not been cleared or approved by the U.S. Food and Drug Administration. Clinical correlation is advised. ? CLINICAL HISTORY Date of Last Menstrual Period: ??N/A Contraceptive History: ??IUD Other Clinical Conditions: ??Screening Pap SPECIMEN SOURCE A: PAP SMEAR (SUREPATH) CE Patient Name: ??OLESYA GODWIN : ??1980 (Age: 37) Sex: ??F Institution: [facility] Location: ??[facility] Date of Collection: ??03/20/2018 Date of Reported: ??03/28/2018 12:36 Results to: Pam Perez MD Pam Perez MD CYTOLOGY ORDERABLES SEE NARRATIVE from Last 3 Months or Most Recently Relevant to Health Maintenance Advance Directives * Full Code (Presumed) (Latest Code Status on File) Date Activated Date Inactivated Comments 02/20/2018 11:02 AM 02/20/2018 5:59 PM Care Teams Therapy Manager Relationship Specialty Start Date End Date Melania Cormier DO [address] [place] [address] PCP - General 12/19/16 Melania Cormier DO [address] [place] [address] Historical LMR Provider 12/18/16 Pam Perez MD [address] [place] [address] Historical LMR Provider 12/18/16 Additional Source Comments The information contained in this document represents components of the legal health record. It is not the complete legal health record.[facility]
== END 2024-03-31 09:16 | disposition home or self-care (01) ==
LOC: HO.LAB 09:15
PROVIDERS: Nurse Practitioner Family; PCP Internal Medicine
DX: J06.9 Acute upper respiratory infection, unspecified (principal); R09.89 Other specified symptoms and signs involving the circulatory and respiratory systems
CPT/HCPCS: 0241U; 99212

== ENCOUNTER 2024-03-31 09:15 | Outpatient (AMB) | payer OTHER, SELFPAY ==
[2024-03-31 10:09] VITALS: BP 120/80; PULSE 83; TEMP 36.9; O2SAT 98; BMI 32.7
--- NOTE | 2024-03-31 10:09 | MHC.OFFWIV ---
Intake Vital Signs 03/31/24 10:09 Height 6 ft Weight 241 lb BMI 32.7 BP 120/80 Blood Pressure Location Lt brachial Position Sitting Pulse 83 Pulse Source Pulse Oximeter Temp 98.5 F Temp Source Oral Pulse Oximetry (%) 98 Intake Visit Reasons: EP Upper respiratory symptoms Intake Note: pt is here for c/o coughing, congestion, fatigued Patient Tobacco Use Status: Former Tobacco user Allergies DAIRY PRODUCTS Adverse Reaction (Unknown, Uncoded 03/31/24 10:09) sensitivity Do you need a note to return to daycare/school/sports/work: No HPI HPI Comments History of Present Illness Details 43 y/o female patient who presents to the [facility] in clinic with c/o Sore throat since last week. C/o chest congestion, nasal congestion and cough. [facility] Medical History (Updated 03/31/24 @ 11:36 by Heavenly Hood NP) Acute respiratory disease Vitamin D deficiency Macrocytosis without anemia Family history of thyroid disorder Essential hypertension Lumbago with sciatica, right side Anxiety and depression ADD (attention deficit disorder) Surgical History Hx of tubal ligation Hx of reduction mammoplasty Family History Father Substance use disorder Lung cancer Generalized anxiety disorder Mother Thyroid disorder Maternal Grandfather Alcoholic Paternal Grandfather Substance use disorder Brother Leukemia Social History Housing: House Patient Tobacco Use Status: Former Tobacco user e-Cigarette/Vaping Use: Former Use service: No Current occupational status: student Cognitive needs: No Hearing needs: No Vision needs: No Female Reproductive History Menstrual Age of Menarche: 15 Review of Systems Const All systems reviewed & are unremarkable except as noted in HPI and below Physical Exam Vital Signs: Last Vital Signs Temp 98.5 F 03/31/24 10:09 Pulse 83 03/31/24 10:09 BP 120/80 03/31/24 10:09 Pulse Ox 98 03/31/24 10:09 BMI result Body Mass Index 32.7 Const General: cooperative and no acute distress Orientation/consciousness: patient oriented x3 HEENT Head: Yes normocephalic Ears: external ears normal and TM abnormal with fluid behind the TM bilateral General nose exam: Abnormal mucous membranes and turbinates present boggy and erythematous and Nasal discharge present Face and sinus: Yes sinuses nontender Mouth: moist mucous membranes Throat: Yes postnasal drainage Resp Effort & Inspection: normal respiratory effort and able to speak in complete sentences Auscultation: clear to auscultation bilaterally Cardio Heart sounds: S1 normal heart sound present and S2 normal heart sound present Neuro General: patient oriented x3 Assessment & Plan Assessment & Plan (1) Acute respiratory disease: Code(s): J06.9 - Acute upper respiratory infection, unspecified Plan: Ordered SARs Warm fluids with honey Rest Acetaminophen for fever and pain relief OTC cough remedies. Orders: Orders SARS-CoV2/FLU/RSV Today R09.89 - Other specified symptoms and signs involving the circulatory and respiratory systems Medications: New benzonatate 100 mg PO TID 90 caps 0RF J06.9 - Acute upper respiratory infection, unspecified Coding Level of Care Code Est Pt Level 3 (32673) Diagnoses Acute respiratory disease J06.9 Time Spent (min) 15
--- OUTSIDE RECORDS SUMMARY | 2024-03-31 13:36 | XMS_ITS | Encounter Summary ---
Author Organization [facility] Address [address] [place] [address] Care Team Providers Care Assembler Chassis Name Role Phone Rosalinda Cormierkatina Farley Primary Care Provider [phone] Encounter Details Date Type Department Care Team (Late st Contact Info) Description 05/07/2020 Orders Only [facility] [address] [place] [address] Mara Pate, PharmD [address] [place], [place] [id number] Social History Tobacco Use Types Packs/Day Years Used Date Smoking Tobacco: Former Smokeless Tobacco: Never Comments Unknown Sex and Gender Information Value Date Recorded Sex Assigned at Not on file Legal Sex Female 3:09 PM EST Gender Identity Not on file Sexual Orientation Not on file documented as of this encounter Plan of Treatment Not on file documented as of this encounter Visit Diagnoses Not on filedocumented in this encounter Care Teams Assembler Chassis Relationship Specialty Start Date End Date Melania Cormier [facility] Medicine [address] [place] [address], [address] [place] [address] PCP - General Family Medicine 04/21/20 documented as of this encounter
--- OUTSIDE RECORDS SUMMARY | 2024-03-31 13:36 | XMS_ITS | Encounter Summary ---
Author Organization [facility] Address [address] [place] [address] Care Team Providers Care Hand Former Name Role Phone Melania Cormier Primary Care Provider [phone] Encounter Details Date Type Department Care Team (Late st Contact Info) Description 05/03/2020 Orders Only [facility] Interventional Radiology [address] [place], [place] [id number] Adia Mendenhall PA [address] [place] [address] Stem cell donor (Primary Dx) Social History Tobacco Use Types Packs/Day Years Used Date Smoking Tobacco: Former Smokeless Tobacco: Never Comments Unknown Sex and Gender Information Value Date Recorded Sex Assigned at Not on file Legal Sex Female 3:09 PM EST Gender Identity Not on file Sexual Orientation Not on file documented as of this encounter Miscellaneous Notes * Pre-Procedure Note - Adia Mendenhall - 05/03/2020 9:49 AM EST Interventional Radiology Protocol Note This protocol note represents a chart review to determine the appropriateness for the requested procedure through today's date. Scheduling of this procedure is contingent upon multiple factors, including, but not limited to, changes in patient's clinical condition or the COVID-19 pandemic. Such factors may cause a delay in scheduling, or need for rescheduling, in accordance with [facility] policies and [facility] guidelines. Request: Pheresis Catheter History of Present Illness: Olesya Godwin is a 39 y.o. female with no past medical history who is being referred to IR for placement of a pheresis catheter for stem cell collection. She will become a potential donor for her brother with leukemia. Past Medical / Past Surgical: No past medical history on file. No past surgical history on file. Problem List: Patient Active Problem List Diagnosis ??? Moderate episode of recurrent major depressive disorder (CMS/HCC) ??? Gastroesophageal reflux disease without esophagitis ??? Primary insomnia ??? COVID-19 virus infection ??? Stem cell donor ??? Strep pharyngitis Current Medications: Current Outpatient Medications: ??? buPROPion XL (WELLBUTRIN XL) 300 mg tablet, Take 300 mg by mouth every morning., Disp: , Rfl: ??? cloNIDine (CATAPRES) 0.1 mg tablet, Take 0.1 mg by mouth nightly as needed for high blood pressure. 0.1-0.2mg as needed for sleep., Disp: , Rfl: ??? dextroamphetamine-amphetamine XR (ADDERALL XR) 20 mg capsule, Take 20 mg by mouth 2 (two) timesa day., Disp: , Rfl: ??? OXcarbazepine (TRILEPTAL) 600 mg tablet, Take 600 mg by mouth 2 times a day., Disp: , Rfl: Allergies: Patient has no known allergies. Labs: Lab Results Component Value Date WBC 6.2 04/29/2020 HGB 14.6 04/29/2020 HCT 43.1 04/29/2020 MCV 92.1 04/29/2020 PLT 367 04/29/2020 Lab Results Component Value Date GLUCOSE 94 04/29/2020 CALCIUM 9.6 04/29/2020 NA 135 04/29/2020 K 3.9 04/29/2020 CO2 27 04/29/2020 CL 100 04/29/2020 BUN 11 04/29/2020 CREATININE 0.69 04/29/2020 EGFR >90 04/29/2020 Lab Results Component Value Date INR 1.0 (L) 04/29/2020 PT 10.9 04/29/2020 Lab Results Component Value Date ALBUMIN 4.7 04/29/2020 ALBUMIN 4.3 04/29/2020 AST 20 04/29/2020 ALT 15 04/29/2020 BILITOT 0.4 04/29/2020 ALKPHOS 80 04/29/2020 MELD-Na score: 6 at 04/29/2020 9:31 AM MELD score: 6 at 04/29/2020 9:31 AM Calculated from: Serum Creatinine: 0.69 mg/dL (Rounded to 1 mg/dL) at 04/29/2020 9:31 AM Serum Sodium: 135 mmol/L at 04/29/2020 9:31 AM Total Bilirubin: 0.4 mg/dL (Rounded to 1 mg/dL) at 04/29/2020 9:31 AM INR(ratio): 1.0 at 04/29/2020 9:31 AM Age: 39 years 6 months ASA Classification: II (mild stable disturbance, e.g. HTN, stable CAD) Assessment and Plan: Olesya Godwin is a 39 y.o. female with no past medical history who is being referred to IR for placement of a pheresis catheter for stem cell collection. She will become a potential donor for her brother with leukemia. Instructions as below. Pre-Procedure Instructions Diet Instructions: NPO after midnight Medication Instructions: No Medication Changes Sedation: Local Anesthesia Moderate Pre-Procedure Labs Required?: Yes CBC - Yes up to date BMP - Yes up to date INR - Yes up to date Pre-procedure COVID 19 testing required 72 hours prior to procedure: Yes Labs ordered pre-procedure: COVID Other Instructions: None Adia Mendenhall PA-C documented in this encounter Plan of Treatment Not on file documented as of this encounter Results * Due to [place] state law, this organization might not be sharing negative HIV tests. * COVID-19 PCR, Pre-Procedure (Asymptomatic), INSTRUCTIONAL SUPPORT SPECIALIST/OP/Saliva (05/14/2020 12:13 PM EST) SARS CoV 2 RNA, RT PCR Not Detected Not Detected ALICE HER QUANT STUDIO 05/14/2020 7:54 PM EST [facility] Comment:A Not Detected (Nega tive) test result is indicative of the absence of SARS-CoV-2 RNA at the level of LoD (Limit of Detection). A negative result does not rule out the possibility of COVID-19 and should not be used as the sole basis for treatment or patient management decisions. If COVID-19 is still suspected, based on exposure history together with other clinical findings, re-testing should be considered. Saliva Mouth region structure / Unknown Non-Blood Collection / Unknown 05/14/2020 12:13 PM EST 05/14/2020 12:37 PM EST Narrative [facility] - 05/14/2020 7:54 PM EST These tests were developed, validated, and their performance characteristics determined by the Molecular Virology Laboratory at [facility] under CLIA [id number]. They have not been cleared or approved by the U.S. Food and Drug Administration (FDA). FDA Policy for Diagnostic Tests for Coronavirus Disease-2019 during the Public Health Emergency issued May 19, 2019, is followed. us Adia [facility] BODY FLUIDS AND STOOLS ORDER CORWIN Final Result [facility] [address] [place] [address], documented in this encounter Visit Diagnoses Diagnosis Stem cell donor- Primary documented in this encounter Care Teams Hand Former Relationship Specialty Start Date End Date Melania Cormier [facility] Medicine [address] [place] [address], [address] [place] [address] PCP - General Family Medicine 04/21/20 documented as of this encounter
--- OUTSIDE RECORDS SUMMARY | 2024-03-31 13:36 | XMS_ITS | Referral Summary ---
Author Organization [facility] Address [address] [place] [address] Care Team Providers Care Ceiling Installer Name Role Phone Melania Cormier Primary Care Provider [phone] Allergies No known active allergies Medications buPROPion XL (WELLBUTRIN XL) 300 mg tablet Take 300 mg by mouth every morning. Active OXcarbazepine (TRILEPTAL) 600 mg tablet Take 600 mg by mouth 2 times a day. Active dextroamphetami ne-amphetamine XR (ADDERALL XR) 20 mg capsule Take 20 mg by mouth 2 (two) times a day. Active cloNIDine (CATAPRES) 0.1 mg tablet Take 0.1 mg by mouth nightly as needed for high blood pressure. 0.1-0.2mg as needed for sleep. Active Active Problems Problem Noted Date Diagnosed Date Moderate episode of recurrent major depressive d isorder 04/28/2020 Gastroesophageal reflux disease without esophagi tis 04/28/2020 Primary insomnia 04/28/2020 COVID-19 virus infection 04/28/2020 Stem cell donor 04/28/2020 Strep pharyngitis 04/28/2020 Social History Tobacco Use Types Packs/Day Years Used Date Smoking Tobacco: Former Smokeless Tobacco: Never Comments Unknown Sex and Gender Information Value Date Recorded Sex Assigned at Not on file Legal Sex Female 3:09 PM EST Gender Identity Not on file Sexual Orientation Not on file Last Filed Vital Signs Vital Sign Reading Time Taken Comments Blood Pressure 118/86 05/19/2020 9:53 AM EDT Pulse 92 05/19/2020 9:53 AM EDT Temperature 36.7 ??C (98.1 ??F) 05/19/2020 9:53 AM ED T Respiratory Rate 18 05/19/2020 9:53 AM EDT Oxygen Saturation 95% 05/19/2020 9:53 AM EDT Inhaled Oxygen Concentration - - Weight 98.2 kg (216 lb 6.4 oz) 05/17/2020 10:02 AM EDT Height 183.2 cm (6' 0.13 ) 04/29/2020 9:57 AM ES T Body Mass Index 29.25 04/29/2020 9:57 AM EST Plan of Treatment Not on file Medical Devices Implanted Type Area Aquatic Performer Device Identifier Shelf Expiration Date Model / Serial / Lot Catheter Glidepath Hemodialysis 14.5fr X 23cm - [id number] Implanted:Qty: 1 on 05/18/2020 by Alexandro Espinal MD at [facility] Catheter Right: Chest Wall [employer] [id number] 12/02/2021 [id number] / / [id number] Insurance [facility] * Guarantor: Marrow Transplant, Unv Bone Account Type Relation to Patient Date of Phone Billing Address Donor Bone Marrow Recipient [address] [facility] [place] [address] [facility] HMO/POS Care Teams Ceiling Installer Relationship Specialty Start Date End Date Melania Cormier [address], [address] [place], [place] [id number] PCP - General Family Medicine 04/21/20
--- OUTSIDE RECORDS SUMMARY | 2024-03-31 13:36 | XMS_ITS | Clinical Summary ---
Author Organization [facility] Address [address] [place] [address] Care Team Providers Care Mat Tester Name Role Phone Melania Cormier Primary Care Provider [phone] Allergies No known active allergies Medications buPROPion [...] 04/29/2020 9:57 AM EST Plan of Treatment Health Maintenance Due Date Last Done Comments Cervical Cancer Screening 1981 HIV Screening 1981 HPV and Pap Smear 1981 Pap Smear 1981 Varicella Vaccines (1 of 2 - 13+ 2-dose series) 1994 DTaP,Tdap,and Td Vaccines (7 - Td or Tdap) 07/20/2021 07/21/2011, 08/27/1986, 04/21/1983, Additional history exists Mammogram 2021 COVID-19 Vaccine ( season) 2023 Influenza Vaccine (#1) 2023 03/04/2020 Alcohol/Substance Use Screening 03/05/2024 RSV Vaccine (60+ years old and patients) (1 - 1-dose 75+ series) 2056 Hepatitis B Vaccines Completed 12/05/1993, 02/03/1993, 12/03/1992 Pneumococcal Vaccine: Pediatric (0-5 Years) and At-Risk Patients (6-64 Years) Aged Out No longer eligible based on patient's age to complete this topic Medical Devices Implanted Type Area Visual Educator Device Identifier Shelf Expiration Date Model / Serial / Lot Catheter Glidepath Hemodialysis 14.5fr X 23cm - [id number] Implanted:Qty: 1 on 05/18/2020 by Alexandro Espinal MD at [facility] Catheter Right: Chest Wall [employer] [id number] 12/02/2021 [id number] / / [id number] Insurance [employer] * Guarantor: Marrow [employer], Unv Bone Account Type Relation to Patient Date of Phone Billing Address Donor Bone Marrow Recipient [address] [facility] Bone [place] [address] [facility] HMO/POS Care Teams Mat Tester Relationship Specialty Start Date End Date Melania Cormier [facility] [address], [address] [place] [address] PCP - General Family Medicine 04/21/20
== END 2024-03-31 11:03 | disposition home or self-care (01) ==
PROVIDERS: PCP Internal Medicine; Visit Provider Nurse Practitioner Family
DX: J06.9 Acute upper respiratory infection, unspecified (principal)

== ENCOUNTER 2024-12-29 12:40 | Outpatient (AMB) | payer OTHER, SELFPAY ==
[2024-12-29 13:35] VITALS: BP 130/86; PULSE 83; TEMP 36.8; O2SAT 97; BMI 33.0
--- NOTE | 2024-12-29 13:35 | MHC.OFFWIV ---
Intake Vital Signs 12/29/24 13:35 Height 6 ft Weight 243 lb BMI 33.0 BP 130/86 Blood Pressure Location Lt brachial Position Sitting Pulse 83 Pulse Source Pulse Oximeter Temp 98.3 F Temp Source Oral Pulse Oximetry (%) 97 Oxygen Delivery Method Room Air Intake Visit Reasons: EP-lt arm rash Intake Note: Patient presents with c/o burning itching rash on left forearm/wrist x1 day. Patient Tobacco Use Status: Former Tobacco user Allergies DAIRY PRODUCTS Adverse Reaction (Unknown, Uncoded 12/29/24 13:38) sensitivity Do you need a note to return to daycare/school/sports/work: No HPI HPI Comments History of Present Illness Details History of Present Illness - The patient is a 44-year-old female presenting with a rash - She initially thought to be hives but now the rash is more red and is not resolving like the other hives. - The rash began last week with the appearance of hives, which the patient attributed to stress and anxiety. - She took Benadryl and the rash seemed to have gotten better. - The rash has not resolved on the left forearm and has developed into an area of erythema and swelling, which started yesterday morning. - The patient noted a cat scratch in the area, which was last week before this rash occurred. - She has pain in the area and no other rashes or lesions. - She denies fever, chills, CP, SOB, or joint pain. - She denies new lotions, soaps, detergents, clothes, medications, or pets. Physical Exam General: Cooperative, healthy appearing, comfortable, no acute distress and well developed Orientation: Patient oriented x3 Limitations: No limitations Respiratory: Normal respiratory effort and able to speak in complete sentences. Clear to auscultation bilaterally. No w/r/r noted. Cardiovascular: Regular rate and rhythm. Normal S1 and S2. No m/r/g noted. Skin: Erythema, warmth, noted on the left forearm. Cat scratch noted. Neuro: Sensation is intact Extremities: Normal to inspection. FROM of the left wrist and digits. Hand human resources talent manager is intact. Patient was informed and verbally consented to the use of an ambient scribe for clinic note documentation during this visit. [facility] Medical History (Updated 03/31/24 @ 11:36 by Heavenly Hood NP) Acute respiratory disease Vitamin D deficiency Macrocytosis without anemia Family history of thyroid disorder Essential hypertension Lumbago with sciatica, right side Anxiety and depression ADD (attention deficit disorder) Surgical History Hx of tubal ligation Hx of reduction mammoplasty Family History Father Substance use disorder Lung cancer Generalized anxiety disorder Mother Thyroid disorder Maternal Grandfather Alcoholic Paternal Grandfather Substance use disorder Brother Leukemia Social History Housing: House Patient Tobacco Use Status: Former Tobacco user e-Cigarette/Vaping Use: Former Use service: No Current occupational status: student Cognitive needs: No Hearing needs: No Vision needs: No Female Reproductive History Menstrual Age of Menarche: 15 Review of Systems Const All systems reviewed & are unremarkable except as noted in HPI and below Physical Exam Vital Signs: Last Vital Signs Temp 98.3 F 12/29/24 13:35 Pulse 83 12/29/24 13:35 BP 130/86 12/29/24 13:35 Pulse Ox 97 12/29/24 13:35 Oxygen Delivery Method Room Air 12/29/24 13:35 BMI result Body Mass Index 33.0 Assessment & Plan Assessment & Plan (1) Cellulitis: Code(s): L03.90 - Cellulitis, unspecified Qualifiers: Laterality: left Site of cellulitis: extremity Site of cellulitis of extremity: upper extremity Qualified Code(s): L03.114 - Cellulitis of left upper limb Plan Most likely cellulitis plan - Benadryl as needed - Keflex 500 mg QID for 7 days - tylenol or motrin as needed - follow up if the rash does not improve with antibiotics Medications: New cephalexin 500 mg PO Q6H 28 caps 0RF Coding Level of Care Code Est Pt Level 3 (77305) Diagnoses Cellulitis of left upper extremity L03.114 Laterality: left Site of cellulitis: extremity Site of cellulitis of extremity: upper extremity
--- OUTSIDE RECORDS SUMMARY | 2024-12-29 16:04 | XMS_ITS | Encounter Summary ---
Author Organization [facility] Address [address] [address] Phone Care Team Providers Care Kiln Repairer Name Role Phone Melania Cormier DO Unavailable Annette WallsM Unavailable Malou Peguero TRAVEL WRITER Unavailable Demetrio Jacobo DO Unavailable Jamil Schneider MD Unavailable Pam Perez MD Unavailable Kristina Mendoza DO Unavailable Kris Altamirano MD Unavailable Jacob Schneider MD Unavailable Aaliyah Maldonado MD Unavailable [phone] Doug Shoemaker MD Unavailable Melania Cormier DO Primary Care Provider [phone] Encounter Details Date Type Department Care Team (Late st Contact Info) Description 08/16/2018 Procedure Pass OR Admitting Dept - Virtual Department [address] [place] [address] Social History Tobacco Use Types Packs/Day Years Used Date Smoking Tobacco: Former Cigarettes 0 07/19/1998 - 07/19/2005 Smokeless Tobacco: Never Alcohol Use Standard Drinks/Week Comments Yes 2 (1 standard drink = 0.6 oz pur e alcohol) Comments No Sex and Gender Information Value Date Recorded Sex Assigned at Not on file Legal Sex Female 9:19 PM EDT Gender Identity Not on file Sexual Orientation Not on file Occupation Industry Job Start Date Job End Date Working Not on file Not on file Not on file Student Not on file Not on file Not on file documented as of this encounter Plan of Treatment Not on file documented as of this encounter Visit Diagnoses Not on filedocumented in this encounter Additional Health Concerns Assessment Noted Time PHQ-2 Depression Total Score: 1 08/18/19 18 11:26 AM EDT documented as of this encounter Care Teams Kiln Repairer Relationship Specialty Start Date End Date Melania Cormier DO [address] [place] [address] PCP - General 12/19/16 04/16/24 Melania Cormier DO [address] [place] [address] Historical LMR Provider 12/18/16 Annette Walls CNM [address] [place] [address] Historical LMR Provider 12/18/16 2 Malou Peguero CNP [address] [place] [address] Historical LMR Provider 12/18/16 03/12/21 Demetrio Jacobo DO [address] [place] [address] Orthopedics & Sports Medicine, [facility] [place] [address] Historical LMR Provider 12/18/16 03/12/21 Jamil Schneider MD 234 [facility] 7 [place] [address] [email or web address] Historical LMR Provider 12/18/16 03/12/21 Pam Perez MD [address] [address] [email or web address] Historical LMR Provider 12/18/16 Kristina Mendoza DO 30 [place] [address] Historical LMR Provider 12/18/16 2 Kris Altamirano MD [address] [place] [phone] Historical LMR Provider 12/18/16 2 Jacob Schneider MD [address] [place], [place] [address] [place] [address] [email or web address] Historical LMR Provider 12/18/16 03/12/21 Aaliyah Maldonado MD [address], [place] [phone] Historical LMR Provider 12/18/16 2 Doug Shoemaker MD [address] [place] [address] Historical LMR Provider 12/18/16 2 documented as of this encounter Additional Source Comments The information contained in this document represents components of the legal health record. It is not the complete legal health record.[facility]
--- OUTSIDE RECORDS SUMMARY | 2024-12-29 16:04 | XMS_ITS | Encounter Summary ---
Author Organization [facility] Address [address] [address] Phone Care Team Providers Care Monument Setter Name Role Phone Melania Cormier DO Unavailable Annette WallsM Unavailable Malou Peguero CAREER INFORMATION SPECIALIST Unavailable Demetrio Jacobo DO Unavailable Jamil Schneider MD Unavailable Pam Perez MD Unavailable Kristina Mendoza DO Unavailable Kris Altamirano MD Unavailable Jacob Schneider MD Unavailable Aaliyah Maldonado MD Unavailable [phone] Doug Shoemaker MD Unavailable Melania Cormier DO Primary Care Provider [phone] Encounter Details Date Type Department Care Team (Late st Contact Info) Description 02/20/2018 Procedure Pass OR Admitting Dept - Virtual Department 30 [place] [address] Social History Tobacco Use Types Packs/Day Years Used Date Smoking Tobacco: Former Cigarettes Q uit: 07/19/2005 Smokeless Tobacco: Never Alcohol Use Standard Drinks/Week Comments Yes 0 (1 standard drink = 0.6 oz pur e alcohol) once a week Comments Unknown Sex and Gender Information Value [...] documented as of this encounter Care Teams Monument Setter Relationship Specialty Start Date End Date Melania Cormier DO [address] [address] PCP - General 12/19/16 04/16/24 Melania Cormier DO [address] [address] Historical LMR Provider 12/18/16 Annette Walls CNM 30 [place] [address] Historical LMR Provider 12/18/16 2 Malou Peguero CNP 15 [facility], [address] [place] [address] Historical LMR Provider 12/18/16 03/12/21 Demetrio Jacobo DO 4 [facility] Orthopedics & Sports Medicine, [facility] [place] [address] Historical LMR Provider 12/18/16 03/12/21 Jamil Schneider MD [address] [place] [phone] [email or web address] Historical LMR Provider 12/18/16 03/12/21 Pam Perez MD 22 [facility] [address] [place] [address] [email or web address] Historical LMR Provider 12/18/16 Kristina Mendoza DO 30 [place] [address] Historical LMR Provider 12/18/16 2 Kris Altamirano MD 236 [facility] [address] [place] [phone] Historical LMR Provider 12/18/16 2 Jacob Schneider MD 234 [facility] [address] [place] [phone] [email or web address] Historical LMR Provider 12/18/16 03/12/21 Aaliyah Maldonado MD [address] [place] [phone] Historical LMR Provider 12/18/16 2 Doug Shoemaker MD [address] [place] [address] Historical LMR Provider 12/18/16 2 documented as of this encounter Additional Source Comments The information contained in this document represents components of the legal health record. It is not the complete legal health record.[facility]
--- OUTSIDE RECORDS SUMMARY | 2024-12-29 16:04 | XMS_ITS | Clinical Summary ---
Author Organization [facility] Address [address] [place] [address] Care Team Providers Care Gynaecological Oncologist Name Role Phone Mealnia Cormier Primary Care Provider [phone] Allergies No known active allergies Medications buPROPion [...] 92 05/19/2020 9:53 AM EDT Temperature 36.7 C (98.1 F) 05/19/2020 9:53 AM EDT Respiratory Rate 18 05/19/2020 9:53 AM EDT [...] 08/27/1986, 04/21/1983, Additional history exists Mammogram 2021 Alcohol/Substance Use Screening 03/05/2024 COVID-19 Vaccine ( - season) 2024 Influenza Vaccine (#1) 2024 03/04/2020 RSV Vaccine (60+ years old and patients) (1 - 1-dose 75+ series) 2056 Hepatitis B Vaccines Completed 12/05/1993, 02/03/1993, 12/03/1992 Pneumococcal Vaccine: Pediatric (0-5 Years) and At-Risk Patients (6-50 Years) Aged Out No longer eligible based on patient's age to complete this topic Medical Devices Implanted Type Area Gis Consultant Device Identifier Shelf Expiration Date Model / Serial / Lot Catheter Glidepath Hemodialysis 14.5fr X 23cm - [id number] Implanted:Qty: 1 on 05/18/2020 by Alexandro Espinal MD at [facility] Catheter Right: Chest Wall [employer] [id number] 12/02/2021 [id number] / / [id number] Insurance [facility] * Guarantor: Marrow Transplant, Unv Bone Account Type Relation to Patient Date of Phone Billing Address Donor Bone Marrow Recipient [address] [facility] [place] [address] [facility] HMO/POS Care Teams Gynaecological Oncologist Relationship Specialty Start Date End Date Melania Cormier [facility] [address], [address] [place] [address] PCP - General Family Medicine 04/21/20
--- OUTSIDE RECORDS SUMMARY | 2024-12-29 16:04 | XMS_ITS | Clinical Summary ---
Author Organization [facility] Address [address] [address] Phone Care Team Providers Care Soda Drier Feeder Name Role Phone Melania Cormier DO Unavailable [phone] Pam Perez MD Unavailable Allergies Active Allergy Reactions Criticality Noted Date Comments Milk Containing Products (Dairy) Medications ibuprofen (ADVIL,MOTRIN) 200 MG tablet Take 200 [...] hours as needed for mild pain. 0 9 Active ibuprofen (ADVIL,MOTRIN) 200 MG tablet Take 3 tablets (600 mg total) by mouth every 6 (six) hours as needed for pain (specific location in comments). 9 Active oxyCODONE 5 MG immediate release tablet Take 1-2 tablets (5-10 mg total) by mouth every 4 (four) hours as needed for moderate pain. Partial fill ok 14 tablet 9 Active LORazepam (ATIVAN) 0.5 MG tablet 9 Active dextroamphetamine-a mphetamine (ADDERALL) 20 mg Tab tablet 20 mg 2 (two) times a day. 9 Active PROCTOSOL HC 2.5 % rectal creamIndications:Re ctal spasm USE PER RECTUM 2 TIMES A DAY FOR 14 DAYS 28.35 g 1 0 Active ondansetron (ZOFRAN-ODT) 8 MG disintegrating tablet Take 1 tablet (8 mg total) by mouth every 8 (eight) hours as needed for nausea. 10 tablet 0 Active Active Problems Problem Noted Date Diagnosed [...] major depressive disorder 08/17/2017 Overview (08/17/2017): Kristen Steve psyNP Assessment & Plan (12/11/2017 2:00 PM [...] your chronic condition (s). Insomnia 05/17/2017 Immunizations Immunization Administration Dates Next Due COVID-19 (Pre-12/25) Pfizer [...] Answer Date Recorded No 07/31/2022 No 07/31/2022 Reliable internet access at home? Not on file 07/31/2022 Device with a working camera? Not on file Comments No Sex and Gender Information Value Date Recorded Sex Assigned at Not on file Legal Sex Female 9:19 PM EDT Gender Identity Not on file Sexual Orientation Not on file Occupation Industry Job Start Date Job End Date Working Not on file Not on file Not on file Student Not on file Not on file Not on file Last Filed Vital Signs Vital Sign Reading Time Taken Comments Blood Pressure 132/100 03/21/2019 3:51 PM EST Pulse 98 03/21/2019 3:51 PM EST Temperature 37.6 C (99.6 F) 02/25/2020 9:35 AM EST Respiratory Rate 14 08/16/2018 11:15 AM EDT [...] Hx and SMOKELESS TOBACCO SCREENING 1994 HEPATITIS C SCREENING 10/19/1999 DEPRESSION SCREENING 08/17/2018 08/17/2017 Adult Td,Tdap Booster 07/20/2021 07/21/2011 MAMMOGRAM 2021 PAP SMEAR 03/20/2023 03/20/2018, 03/20/2018, 01/04/2012 INFLUENZA VACCINE (#1) 2024 03/04/2020 COVID-19 VACCINE (2024-2 6 season) 2024 07/11/2021, 07/13/2020, 06/22/2020 MENINGOCOCCAL VACCINES (ACWY) Aged Out 07/21/2011 No longer eligible based on patient's age to complete this topic HEPATITIS A VACCINES Aged Out No long er eligible based on patient's age to complete this topic HIB VACCINES Aged Out No longer eligi ble based on patient's age to complete this topic MENINGOCOCCAL VACCINES (B) Aged Out N o longer eligible based on patient's age to complete this topic PNEUMOCOCCAL VACCINES (0-49 years) Aged Out No longer eligible b ased on patient's age to complete this topic Medical Devices Implanted Type Area Front End Loader Operator Device Identifier Shelf Expiration Date Model / Serial / Lot Jaw Procedures Procedure Name Priority Date/Time Associated Diagnosis Comments PAP TEST Routine 03/20/2018 12:00 AM EST from Last 3 Months or Most Recently Relevant to Health Maintenance Results * Pap Smear (03/20/2018 12:00 AM EST) 03/20/2018 03/21/2018 12: 48 PM EST Narrative SEE NARRATIVE - 03/28/2018 12:36 PM EST [address] [address] Optical Instruments Supervisor: Lilli Bansal MD POLYTECHNIC TEACHER Cytology Report FINAL DIAGNOSIS A. PAP SMEAR (SUREPATH) CE: SPECIMEN ADEQUACY: Satisfactory for evaluation; transformation zone present. INTERPRETATION: NEGATIVE FOR INTRAEPITHELIAL LESION OR MALIGNANCY. Electronically Signed Out By: LEYDA Villatoro(ASCP) Elisabet CRABTREE(ASCP) The Pap test is a screening test primarily for squamous cancers and precursors and has associated false-negative and false-positive results. New technologies such as liquid-based preparations may decrease but will not eliminate all false-negative results. Regular sampling and follow-up of unexplained clinical signs and symptoms are recommended to minimize false negative results. PROCEDURES/ADDENDA HPV Testing (Requested) Ordered Date: 03/21/2018 HPV Test Negative for high-risk human papillomavirus types 16, 18, 45 and the Other high risk probe set (Includes 31, 33, 35, 39, 51, 52, 56, 58, 59, 66, 68) by [employer] Onclarity HR-HPV analysis. Clinical correlation is advised. This HPV test was performed at [facility], [address] [place] [address]. This test has been FDA approved for SurePath cervical cytology specimens. The accuracy and precision of this test for all other specimen sources has been verified in the Cytopathology Laboratory of the [facility] and has not been cleared or approved by the U.S. Food and Drug Administration. Clinical correlation is advised. CLINICAL HISTORY Date of Last Menstrual Period: N/A Contraceptive History: IUD Other Clinical Conditions: Screening Pap SPECIMEN SOURCE A: PAP SMEAR (SUREPATH) CE Patient Name: OLESYA GODWIN : 1980 (Age: 37) Sex: F [facility] Location: [facility] Date of Collection: 03/20/2018 Date of Reported: 03/28/2018 12:36 Results to: Pam Perez MD Pam Perez MD CYTOLOGY ORDERABLES Final Result SEE NARRATIVE from Last 3 Months or Most Recently Relevant to Health Maintenance Insurance [employer] CHOICE [employer] CHO[employer] CHOICE CHOICE CHOICE CHOICE CHOICE [facility] CHOICE Advance Directives For more information, please contact: [phone] (9AM - 5PM [facility], Sunday-Sunday) * Full Code (Presumed) (Latest Code Status on File) Date Activated Date Inactivated Comments 02/20/2018 11:02 AM 02/20/2018 5:59 PM Care Teams Soda Drier Feeder Relationship Specialty Start Date End Date Melania Cormier DO [address] [place] [address] 7 [place] [address] Historical LMR Provider 12/18/16 Pam Perez MD [address] [place] [address] [address] [place] [address] Historical LMR Provider 12/18/16 Additional Source Comments The information contained in this document represents components of the legal health record. It is not the complete legal health record.[facility]
--- OUTSIDE RECORDS SUMMARY | 2024-12-29 16:04 | XMS_ITS | Encounter Summary ---
Author Organization [facility] Address [address] [place] [address] Care Team Providers Care Hvac Sales Engineer Name Role Phone Rosalinda Cormierkatina Farley Primary Care Provider Encounter Details Date Type Department Care Team (Late st Contact Info) Description 05/07/2020 Orders Only [facility] [address] [place] [address] Mara Pate, PharmD [address] [place], [place] [phone] Social History Tobacco Use Types Packs/Day Years [...] on filedocumented in this encounter Care Teams Hvac Sales Engineer Relationship Specialty Start Date End Date Melania Cormier [facility] Medicine [address] [place] [address], [address] [place] [address] PCP - General Family Medicine 04/21/20 documented as of this encounter
--- OUTSIDE RECORDS SUMMARY | 2024-12-29 16:04 | XMS_ITS | Encounter Summary ---
Author Organization [facility] Address [address] [place] [address] Care Team Providers Care Pool Servicer Name Role Phone Melania Cormier Primary Care Provider [phone] Encounter Details Date Type Department Care Team (Late st Contact Info) Description 05/03/2020 Orders Only [facility] Interventional Radiology [address] [place], [place] [phone] Adia Mendenhall PA [address] [place], [place] [phone] Stem cell donor (Primary Dx) Social History [...] or need for rescheduling, in accordance with [facility] policies and [facility] guidelines. Request: Pheresis Catheter History of Present [...] of this encounter Results * Due to [place] state law, this organization might not be sharing negative HIV tests. * COVID-19 PCR, Pre-Procedure (Asymptomatic), MUSIC MINISTRIES DIRECTOR/OP/Saliva (05/14/2020 12:13 PM EST) SARS CoV 2 RNA, RT PCR Not Detected Not Detected THERMOF HER QUANT STUDIO 05/14/2020 7:54 PM EST [facility] Comment:A Not Detected (Nega [...] determined by the Molecular Virology Laboratory at [facility] under CLIA [id number]. They have not been cleared or approved by the U.S. Food and Drug Administration (FDA). FDA Policy for Diagnostic Tests for Coronavirus Disease-2019 during the Public Health Emergency issued May 19, 2019, is followed. us Adia [facility] BODY FLUIDS AND STOOLS ORDER CORWIN Final Result [facility] [address] [place] [address], documented in this encounter Visit Diagnoses Diagnosis Stem cell donor- Primary documented in this encounter Care Teams Pool Servicer Relationship Specialty Start Date End Date Melania Cormier [facility] [address] [facility], [address] [place] [address] PCP - General Family Medicine 04/21/20 documented as of this encounter
== END 2024-12-29 14:26 | disposition home or self-care (01) ==
PROVIDERS: PCP Internal Medicine; Visit Provider Physician Assistant Medical
DX: L03.114 Cellulitis of left upper limb (principal)

== ENCOUNTER 2025-01-06 09:17 | Outpatient (AMB) | payer OTHER, SELFPAY ==
[2025-01-06 09:21] VITALS: BP 124/92; PULSE 77; TEMP 36.7; O2SAT 97; BMI 33.9
--- NOTE | 2025-01-06 09:21 | MHC.OFFWIV ---
Intake Vital Signs 01/06/25 09:21 Height 6 ft Weight 250 lb BMI 33.9 BP 124/92 H Blood Pressure Location Lt brachial Position Sitting Pulse 77 Pulse Source Pulse Oximeter Temp 98.1 F Temp Source Oral Pulse Oximetry (%) 97 Oxygen Delivery Method Room Air Comment High Distolic BP; pt reports she is under stress Intake Visit Reasons: EP Right arm pain/ possible infection Intake Note: pt presents with right arm redness, swelling, itch and pain x4 days- is at the end of rx cephalexin for cellulitis of LT arm Patient Tobacco Use Status: Former Tobacco user Allergies No Known Allergies Allergy (Verified 01/06/25 09:26) Do you need a note to return to daycare/school/sports/work: Yes HPI HPI Comments History of Present Illness Details History - The patient is a 44-year-old female presenting with a rash to the right upper arm. - The rash initially started on the left lower arm and originally thought to be cellulitis from a cat scratch in the same area. - She was seen here on 12/29 and given antibiotics that she finished yesterday. - The rash cleared up but recurred four days ago, starting on the opposite side and moving systematically up the right arm. - The patient completed a course of cephalexin yesterday, but the rash persisted, raising concerns about an infection despite antibiotic treatment. - The rash is associated with swelling and warmth, causing pain rather than itchiness. - No history of injectable medications or systemic conditions like diabetes or breast issues that could predispose to infection. - She denies new foods, lotions, soaps, detergents, clothes, pets, or travel. - She has no bites. - She has no trauma to the right arm. Physical Exam General: Cooperative, healthy appearing, comfortable, no acute distress and well developed Orientation: Patient oriented x3 Limitations: No limitations Mouth: normal, moist oral mucosa Neck: Normal visual inspection and Yes full ROM Respiratory: Normal respiratory effort and able to speak in complete sentences. Clear to auscultation bilaterally. No w/r/r noted. Cardiovascular: RRR, no m/r/g noted. Normal S1 and S2 Skin: Flat, erythematous, lacy, warm, blanchable, non-tender rash noted on the right upper inner arm. No induration noted. No discharge or lesions noted. Patient was informed and verbally consented to the use of an ambient scribe for clinic note documentation during this visit [facility] Medical History (Updated 03/31/24 @ 11:36 by Heavenly Hood NP) Acute respiratory disease Vitamin D deficiency Macrocytosis without anemia Family history of thyroid disorder Essential hypertension Lumbago with sciatica, right side Anxiety and depression ADD (attention deficit disorder) Surgical History Hx of tubal ligation Hx of reduction mammoplasty Family History Father Substance use disorder Lung cancer Generalized anxiety disorder Mother Thyroid disorder Maternal Grandfather Alcoholic Paternal Grandfather Substance use disorder Brother Leukemia Social History Housing: House Patient Tobacco Use Status: Former Tobacco user e-Cigarette/Vaping Use: Former Use service: No Current occupational status: student Cognitive needs: No Hearing needs: No Vision needs: No Female Reproductive History Menstrual Age of Menarche: 15 Review of Systems Const All systems reviewed & are unremarkable except as noted in HPI and below Physical Exam Vital Signs: Last Vital Signs Temp 98.1 F 01/06/25 09:21 Pulse 77 01/06/25 09:21 BP 124/92 H 01/06/25 09:21 Pulse Ox 97 01/06/25 09:21 Oxygen Delivery Method Room Air 01/06/25 09:21 BMI result Body Mass Index 33.9 Assessment & Plan Assessment & Plan (1) Rash: Code(s): R21 - Rash and other nonspecific skin eruption (2) Cellulitis: Code(s): L03.90 - Cellulitis, unspecified Qualifiers: Laterality: right Site of cellulitis: extremity Site of cellulitis of extremity: upper extremity Qualified Code(s): L03.113 - Cellulitis of right upper limb Plan Most likely cellulitis vs allergic reaction vs urticaria Plan - will start Doxycycline 100 mg BID for 7 days - If patient has a reaction, can send her another different antibiotic - Consider further evaluation to rule out underlying causes of rash persistence despite antibiotic treatment. - Monitor for any signs of systemic infection or progression of the rash. - Should follow up with her PCP Medications: New doxycycline hyclate 100 mg PO BID 14 tabs 0RF Coding Level of Care Code Est Pt Level 3 ([address]) Diagnoses Rash R21 Cellulitis of right upper extremity L03.113 Laterality: right Site of cellulitis: extremity Site of cellulitis of extremity: upper extremity
--- OUTSIDE RECORDS SUMMARY | 2025-01-06 10:04 | XMS_ITS | Clinical Summary ---
Author Organization [facility] Address [address] [place] [address] Care Team Providers Care Precision Agronomist Name Role Phone Melania Cormier Primary Care Provider [phone] Allergies No known active allergies Medications buPROPion [...] this topic Medical Devices Implanted Type Area Substation Supervisor Device Identifier Shelf Expiration Date Model / Serial / Lot Catheter Glidepath Hemodialysis 14.5fr X 23cm - [id number] Implanted:Qty: 1 on 05/18/2020 by Alexandro Espinal MD at [facility] Catheter Right: Chest Wall [employer] [id number] 12/02/2021 [id number] / / [id number] Insurance [facility] * Guarantor: Marrow Transplant, Unv Bone Account Type Relation to Patient Date of Phone Billing Address Donor Bone Marrow Recipient [address] [facility] [place] [address] [facility] HMO/POS Care Teams Precision Agronomist Relationship Specialty Start Date End Date Melania Cormier [facility] [address], [address] [place] [address] PCP - General Family Medicine 04/21/20
--- OUTSIDE RECORDS SUMMARY | 2025-01-06 10:04 | XMS_ITS | Encounter Summary ---
Author Organization [facility] Address [address] [place] [address] Care Team Providers Care Prime Minister Name Role Phone Melania Cormier Primary Care Provider [phone] Encounter Details Date Type Department Care Team (Late st Contact Info) Description 05/03/2020 Orders Only [facility] Interventional Radiology [address] [place], [place] [phone] Adia Mendenhall PA [address] [place], [place] [phone] Stem cell donor (Primary Dx) Social History [...] or need for rescheduling, in accordance with [facility] policies and [facility] guidelines. Request: Pheresis Catheter History of [...] of this encounter Results * Due to [place] state law, this organization might not be sharing negative HIV tests. * COVID-19 PCR, Pre-Procedure (Asymptomatic), AIR TECHNICIAN/OP/Saliva (05/14/2020 12:13 PM EST) SARS CoV 2 RNA, RT PCR Not Detected Not Detected THERMOF HER QUANT STUDIO 05/14/2020 7:54 PM EST [facility] CL[facility] Comment:A Not Detected (Nega [...] determined by the Molecular Virology Laboratory at [facility] under CLIA [id number]. They have not been cleared or approved by the U.S. Food and Drug Administration (FDA). FDA Policy for Diagnostic Tests for Coronavirus Disease-2019 during the Public Health Emergency issued May 19, 2019, is followed. us Adia [facility] BODY FLUIDS AND STOOLS ORDER CORWIN Final Result [facility] [address] [place] [address], documented in this encounter Visit Diagnoses Diagnosis Stem cell donor- Primary documented in this encounter Care Teams Prime Minister Relationship Specialty Start Date End Date Melania Cormier [facility] Medicine [address] [facility], [address] [place] [address] PCP - General Family Medicine 04/21/20 documented as of this encounter
--- OUTSIDE RECORDS SUMMARY | 2025-01-06 10:04 | XMS_ITS | Encounter Summary ---
Author Organization [facility] Address [address] [place] [address] Care Team Providers Care Director Of Math Name Role Phone Rosalinda Cormierkatina Farley Primary Care Provider [phone] Encounter Details Date Type Department Care Team (Late st Contact Info) Description 05/07/2020 Orders Only [facility] [address] [place] [address] Mara Pate, PharmD [address] [place], [place] [phone] Social History Tobacco Use Types Packs/Day Years [...] on filedocumented in this encounter Care Teams Director Of Math Relationship Specialty Start Date End Date Melania Cormier [facility] Medicine [address] [place] [address], [address] [place] [address] PCP - General Family Medicine 04/21/20 documented as of this encounter
--- OUTSIDE RECORDS SUMMARY | 2025-01-06 10:05 | XMS_ITS | Encounter Summary ---
Author Organization [facility] Address [address] [address] Phone Care Team Providers Care Spa Supervisor Name Role Phone Melania Cormier DO Unavailable Annette WallsM Unavailable Malou Peguero CASER Unavailable Demetrio Jacobo DO Unavailable Jamil Schneider MD Unavailable Pam Perez MD Unavailable Kristina Mendoza DO Unavailable Kris Altamirano MD Unavailable Jacob Schneider MD Unavailable Aaliyah Maldonado MD Unavailable [phone] Doug Shoemaker MD Unavailable Melania Cormier DO Primary Care Provider [phone] Encounter Details Date Type Department Care Team (Late st Contact Info) Description 08/16/2018 Procedure Pass [place] Admitting Dept - Virtual Department [address] [place] [address] Social History Tobacco Use Types [...] documented as of this encounter Care Teams Spa Supervisor Relationship Specialty Start Date End Date Melania Cormier DO [address] [place] [address] PCP - General 12/19/16 04/16/24 Melania Cormier DO [address] [place] [address] Historical LMR Provider 12/18/16 Annette Walls CNM [address] [place] [address] Historical LMR Provider 12/18/16 2 Malou Peguero CNP [address] [place] [address] Historical LMR Provider 12/18/16 03/12/21 Demetrio Jacobo DO [address] [place] [address] Orthopedics & Sports Medicine, [facility] [place] [address] Historical LMR Provider 12/18/16 03/12/21 Jamil Schneider MD 234 [facility] 7 [place] [address] [email or web address] Historical LMR Provider 12/18/16 03/12/21 Pam Perez MD [address] [address] [email or web address] Historical LMR Provider 12/18/16 Kristina Mendoza DO [address] [place] [address] Historical LMR Provider 12/18/16 2 Kris Altamirano MD 236 [address] [place] [phone] Historical LMR Provider 12/18/16 2 Jacob Schneider MD [address] [place], [place] [address] [place] [address] [email or web address] Historical LMR Provider 12/18/16 03/12/21 Aaliyah Maldonado MD [address], [place] [phone] Historical LMR Provider 12/18/16 2 Doug Shoemaker MD [address] [place] [address] Historical LMR Provider 12/18/16 2 documented as of this encounter Additional Source Comments The information contained in this document represents components of the legal health record. It is not the complete legal health record.[facility]
--- OUTSIDE RECORDS SUMMARY | 2025-01-06 10:05 | XMS_ITS | Encounter Summary ---
Author Organization [facility] Address [address] [address] Phone Care Team Providers Care Clay Roaster Name Role Phone Melania Cormier DO Unavailable Annette WallsM Unavailable Malou Peguero CLIENT ANALYST Unavailable Demetrio Jacobo DO Unavailable Jamil Schneider MD Unavailable Pam Perez MD Unavailable Kristina Mendoza DO Unavailable Kris Altamirano MD Unavailable Jacob Schneider MD Unavailable Aaliyah Maldonado MD Unavailable [phone] Doug Shoemaker MD Unavailable Melania Cormier DO Primary Care Provider [phone] Encounter Details Date Type Department Care Team (Late st Contact Info) Description 02/20/2018 Procedure Pass [place] Admitting Dept - Virtual Department [address] [place] [address] Social History Tobacco Use Types [...] documented as of this encounter Care Teams Clay Roaster Relationship Specialty Start Date End Date Melania Cormier DO [address] [address] PCP - General 12/19/16 04/16/24 Melania Cormier DO [address] [address] Historical LMR Provider 12/18/16 Annette Walls CNM [address] [place] [address] Historical LMR Provider 12/18/16 2 Malou Peguero CNP 15 [facility], [address] [place] [address] Historical LMR Provider 12/18/16 03/12/21 Demetrio Jacobo DO 4 [facility] Orthopedics & Sports Medicine, [facility] [place] [address] Historical LMR Provider 12/18/16 03/12/21 Jamil Schneider MD [address] [place] [phone] [email or web address] Historical LMR Provider 12/18/16 03/12/21 Pam Perez MD 22 [facility] [address] [place] [address] [email or web address] Historical LMR Provider 12/18/16 Kristina Mendoza DO [address] [place] [address] Historical LMR Provider 12/18/16 2 Kris Altamirano MD 236 [facility] [address] [place] [phone] Historical LMR Provider 12/18/16 2 Jacob Schneider MD 234 [facility] [address] [place] [phone] [email or web address] Historical LMR Provider 12/18/16 03/12/21 Aaliyah Maldonado MD [address] [place] [phone] Historical LMR Provider 12/18/16 2 Doug Shoemaker MD [address] [place] [address] Historical LMR Provider 12/18/16 2 documented as of this encounter Additional Source Comments The information contained in this document represents components of the legal health record. It is not the complete legal health record.[facility]
--- OUTSIDE RECORDS SUMMARY | 2025-01-06 10:05 | XMS_ITS | Clinical Summary ---
Author Organization [facility] Address [address] [address] Phone Care Team Providers Care Paper Sorter Name Role Phone Melania Cormier DO Unavailable [phone] Pam Perez MD Unavailable Allergies Active [...] this topic Medical Devices Implanted Type Area Sifter Operator Device Identifier Shelf Expiration Date Model / Serial / Lot Jaw Procedures Procedure Name Priority Date/Time Associated Diagnosis Comments PAP TEST Routine 03/20/2018 12:00 AM EST from Last 3 Months or Most Recently Relevant to Health Maintenance Results * Pap Smear (03/20/2018 12:00 AM EST) 03/20/2018 03/21/2018 12: 48 PM EST Narrative SEE NARRATIVE - 03/28/2018 12:36 PM EST [address] [address] Executive Associate: Lilli Bansal MD WINDOW INSTALLATION SUBCONTRACTOR Cytology Report FINAL DIAGNOSIS A. PAP SMEAR [...] 52, 56, 58, 59, 66, 68) by ImmuVen Onclarity HR-HPV analysis. Clinical correlation is advised. This HPV test was performed at [facility], [address] [place] [address]. This test has been FDA approved for SurePath cervical cytology specimens. The accuracy and precision of this test for all other specimen sources has been verified in the Cytopathology Laboratory of the [facility] and has not been cleared or approved by the U.S. Food and Drug Administration. Clinical correlation is advised. CLINICAL HISTORY Date of Last Menstrual Period: N/A Contraceptive History: IUD Other Clinical Conditions: Screening Pap SPECIMEN SOURCE A: PAP SMEAR (SUREPATH) CE Patient Name: OLESYA GODWIN : 1980 (Age: 37) Sex: F Institution: [facility] Location: [facility] Date of Collection: 03/20/2018 Date of Reported: 03/28/2018 12:36 Results to: Pam Perez MD Pam Perez MD CYTOLOGY ORDERABLES Final Result SEE NARRATIVE from Last 3 Months or Most Recently Relevant to Health Maintenance Insurance [employer] CHOICE [employer] CHOICE CHOICE CHOICE CHOICE CHOICE CHOICE [facility] CHOICE Advance Directives For more information, please contact: [phone] (9AM - 5PM [facility], Sunday-Sunday) * Full Code (Presumed) (Latest Code Status on File) Date Activated Date Inactivated Comments 02/20/2018 11:02 AM 02/20/2018 5:59 PM Care Teams Paper Sorter Relationship Specialty Start Date End Date Melania Cormier DO [address] [place] [address] 7 [place] [address] Historical LMR Provider 12/18/16 Pam Perez MD [address] [place] [address] [address] [place] [address] Historical LMR Provider 12/18/16 Additional Source Comments The information contained in this document represents components of the legal health record. It is not the complete legal health record.[facility]
== END 2025-01-06 10:18 | disposition home or self-care (01) ==
PROVIDERS: PCP Internal Medicine; Visit Provider Physician Assistant Medical
DX: R21 Rash and other nonspecific skin eruption (principal); L03.113 Cellulitis of right upper limb

== ENCOUNTER 2025-01-13 15:39 | Outpatient (AMB) | payer OTHER, SELFPAY ==
[2025-01-13 16:01] VITALS: BP 130/80; PULSE 80; RESP 16; TEMP 36.7; O2SAT 99; BMI 33.9
--- NOTE | 2025-01-13 16:01 | A.OFFPC_ITS ---
Vital Signs 01/13/25 16:01 Height 6 ft Weight 250 lb BMI 33.9 BP 130/80 Blood Pressure Location Rt brachial Position Sitting Respiration 16 Pulse 80 Pulse Source Pulse Oximeter Temp 98.1 F Temp Source Oral Pulse Oximetry (%) 99 Oxygen Delivery Method Room Air Intake Visit Reasons: Follow up for cellulitis infection Intake Note: Pt is here today for a f/u cellulitis infection Lt forearm is cleared, but now has a rash on Rt upper leg Fishing Floats Assembler Required: No Allergies No Known Allergies Allergy (Verified 01/13/25 16:02) Tobacco use date assessed: 01/13/25 Dental Screening Dental Screen Date: 01/13/25 Did you have a dental visit in the last 12 months?: Yes Did you have a dental problem in the last 6 months where you did not have access to dental care?: No Was dental information given to patient?: Patient has dentist [facility] Medical History (Updated 03/31/24 @ 11:36 by Heavenly Hood NP) Acute respiratory disease Vitamin D deficiency Macrocytosis without anemia Family history of thyroid disorder Essential hypertension Lumbago with sciatica, right side Anxiety and depression ADD (attention deficit disorder) Surgical History Hx of tubal ligation Hx of reduction mammoplasty Family History Father Substance use disorder Lung cancer Generalized anxiety disorder Mother Thyroid disorder Maternal Grandfather Alcoholic Paternal Grandfather Substance use disorder Brother Leukemia Social History Housing: House Patient Tobacco Use Status: Former Tobacco user e-Cigarette/Vaping Use: Former Use service: No Current occupational status: student Cognitive needs: No Hearing needs: No Vision needs: No Female Reproductive History Menstrual Age of Menarche: 15 Questionnaire PHQ-9 Over the last 2 weeks, how often have you been bothered by any of the following problems? 1. Little interest or pleasure in doing things: several days 2. Feeling down, depressed, or hopeless: several days 3. Trouble falling or staying asleep, or sleeping too much: not at all 4. Feeling tired or having little energy: several days 5. Poor appetite or overeating: not at all 6. Feeling bad about yourself - or that you are a failure or have let yourself or your family down: several days 7. Trouble concentrating on things, such as reading the newspaper or watching television: several days 8. Moving or speaking so slowly that other people could have noticed. Or the o pposite - being so fidgety or restless that you have been moving around a lot more than usual: not at all 9. Thoughts that you would be better off or of hurting yourself in some way: not at all Total score: 5 Depression Screening Interpretation: Negative Depression Screening Done: Yes 48982 - PHQ-9 Billing: Yes Source: Developed by Drs. Jamil Holland, Elyse Knox, Michael Molina and colleagues, with an educational charanjit from [employer]. Thrive Questionnaire Date Thrive assessed: 01/10/25 I am a: Patient What is your living situation today?: I have a steady place to live Within the past 12 months, did the food you bought not last and you didn't have the money to get more?: Never true Within the past 12 months, did you worry whether your food would run out before you got money to buy more?: Never true Do you have trouble paying for medicines?: No Do you have trouble getting transportation to medical appointments?: No Do you have trouble paying your heating and electricity bill?: No Do you have trouble taking care of your child, family member or friend?: No Do you have trouble with day-to-day activities such as bathing, preparing meals, shopping, managing finances, etc.?: No Are you currently unemployed and looking for a job?: No Are you interested in more education?: No Please select the resources that you would like help with: None Currently or been in a relationship where the following occur: No concerns reported THRIVE Score: 0 AUDIT C Alcohol Use Questionnaire (AUDIT-C) 1. How often do you have a drink containing alcohol?: Never 3. How often do you have six or more drinks on one occasion?: Never Total Score: 0 Score Reviewed/Action Taken: Yes TASNEEM-7 AMB Questionnaire TASNEEM-7 Date TASNEME - 7 assessed: 01/13/25 Feeling nervous, anxious, or on edge: 1 = Several days Not being able to stop or control worryin = Several days Worrying too much about different things: 1 = Several days Trouble relaxin = Several days Being so restless that it is hard to sit still: 1 = Several days Becoming easily annoyed or irritable: 1 = Several days Feeling afraid as if something awful might happen: 0 = Not at all Total TASNEEM-7 score (0-4 normal; 5-9 mild; 10-14 moderate; 15-21 severe): 6 Source: Developed by Drs. Jamil Holland, Elyse Knox, Michael Molina and colleagues, with an educational charanjit from [employer]. TASNEEM-7 Assessment Billing TASNEEM-7 Assessment Tool: TASNEEM-7 Assessment 07100 Physical exam (Primary Care) Vital Signs: Last Vital Signs Temp 98.1 F 01/13/25 16:01 Pulse 80 01/13/25 16:01 Resp 16 01/13/25 16:01 BP 130/80 01/13/25 16:01 Pulse Ox 99 01/13/25 16:01 Oxygen Delivery Method Room Air 01/13/25 16:01 BMI result Body Mass Index 33.9 Tobacco/Smoking Status: Tobacco use Status Tobacco use date assessed 01/13/25 01/13/25 16:04 Patient Tobacco Use Status Former Tobacco user 01/13/25 16:04 e-Cigarette/Vaping Use Former Use 01/13/25 16:04 PHQ-9: PHQ-9 Score PHQ-9: Total score 5 01/13/25 16:40 Depression Screening Interpretation: Negative Thrive Assessment: Date of Thrive Assessment Date Thrive assessed 01/10/25 01/13/25 16:04 Currently or been in a relationship where the following occur: No concerns reported Immunizations Boostrix Tdap 2.5 Lf unit-8 mcg-5 Lf/0.5 mL intramuscular syringe Performing Provider: Ewa Cano MD Performing Location: [facility] Administered by: Annette Perez CMA on 01/13/25 16:48 Dose Route Admin Location Dispensed Lot Number Expiration Date [facility] Food Science Technician 0.5 mL IM Right Deltoid 0.5 mL [id number] 08/15/27 [id number] [facility] Total Dispensed Waste 0.5 mL 0 % VIS Given Date VIS Provided VIS Publication Date 01/13/25 Single Vaccine 20 Eligibility Eligibility Date Funding Source Not [facility] Eligible 01/13/25 Private Coding Additional Codes TASNEEM-7 Assessment Billing - TASNEEM-7 Assessment Tool: TASNEEM-7 Assessment 24634 ([id number]) PHQ-9 - 63680 - PHQ-9 Billing: Yes ([id number]) Assessment & Plan Assessment & Plan Orders: Orders TDaP Immunization Today Z23 - Encounter for immunization
--- OUTSIDE RECORDS SUMMARY | 2025-01-13 17:12 | XMS_ITS | Encounter Summary ---
Author Organization [facility] Address [address] [address] Phone Care Team Providers Care Isotope Hydrologist Name Role Phone Melania Cormier DO Unavailable Annette WallsM Unavailable Malou Peguero BALING MACHINE TENDER Unavailable Demetrio Jacobo DO Unavailable Jamil Schneider MD Unavailable Pam Perez MD Unavailable Kristina Mendoza DO Unavailable Kris Altamirano MD Unavailable Jacob Schneider MD Unavailable Aaliyah Maldonado MD Unavailable [phone] Doug Shoemaker MD Unavailable Melania Cormier DO Primary Care Provider [phone] Encounter Details Date Type Department Care Team (Late st Contact Info) Description 08/16/2018 Procedure Pass [place] Admitting Dept - Virtual Department [address] [place] [address] Social History Tobacco Use Types [...] documented as of this encounter Care Teams Isotope Hydrologist Relationship Specialty Start Date End Date Melania Cormier DO [address] [place] [address] PCP - General 12/19/16 04/16/24 Melania Cormier DO [address] [place] [address] Historical LMR Provider 12/18/16 Annette Walls CNM [address] [place] [address] Historical LMR Provider 12/18/16 2 Malou Peguero CNP [address] [place] [address] Historical LMR Provider 12/18/16 03/12/21 Demetrio Jacobo DO [address] [place] [address] Orthopedics & Sports Medicine, [facility] [place] [address] Historical LMR Provider 12/18/16 03/12/21 Jamil Schneider MD 234 [facility] 7 [place] [address] [email or web address] Historical LMR Provider 12/18/16 03/12/21 Pam Perez MD [address] [address] [email or web address] Historical LMR Provider 12/18/16 Kristina Mendoza DO 30 [place] [address] Historical LMR Provider 12/18/16 2 Kris Altamirano MD 236 [address] [place] [phone] Historical LMR Provider 12/18/16 2 Jacob Schneider MD [address] [place], [place] [address] [place] [address] [email or web address] Historical LMR Provider 12/18/16 03/12/21 Aaliyah Maldonado MD [address], [place] [phone] Historical LMR Provider 12/18/16 2 Doug Shoemaker MD [address] [place] [address] Historical LMR Provider 12/18/16 2 documented as of this encounter Additional Source Comments The information contained in this document represents components of the legal health record. It is not the complete legal health record.[facility]
--- OUTSIDE RECORDS SUMMARY | 2025-01-13 17:12 | XMS_ITS | Encounter Summary ---
Author Organization [facility] Address [address] [place] [address] Care Team Providers Care International Sales Representative Name Role Phone Rosalinda Cormierkatina Farley Primary Care Provider Encounter Details Date Type Department Care Team (Late st Contact Info) Description 05/07/2020 Orders Only [facility] Oncology Pharmacy [address] [place] [address] Mara Pate, PharmD [address] [place], [place] [phone] Social History Tobacco Use Types Packs/Day Years [...] on filedocumented in this encounter Care Teams International Sales Representative Relationship Specialty Start Date End Date Melania Cormier [facility] Medicine [address] [place] [address], [address] [place] [address] PCP - General Family Medicine 04/21/20 documented as of this encounter
--- OUTSIDE RECORDS SUMMARY | 2025-01-13 17:12 | XMS_ITS | Clinical Summary ---
Author Organization [facility] Address [address] [place] [address] Care Team Providers Care Grill Chef Name Role Phone Melania Cormier Primary Care Provider [phone] Allergies No known active allergies Medications buPROPion [...] Alcohol/Substance Use Screening 03/05/2024 COVID-19 Vaccine ( season) 2024 Influenza Vaccine (#1) 2024 03/04/2020 Hepatitis B Vaccines Completed 12/05/1993, 02/03/1993, 12/03/1992 Pneumococcal Vaccine: Pediatric (0-5 Years) and At-Risk Patients (6-50 Years) Aged Out No longer eligible based on patient's age to complete this topic Medical Devices Implanted Type Area Mogul Operator Device Identifier Shelf Expiration Date Model / Serial / Lot Catheter Glidepath Hemodialysis 14.5fr X 23cm - [id number] Implanted:Qty: 1 on 05/18/2020 by Alexandro Espinal MD at [facility] Catheter Right: Chest Wall [employer] [id number] 12/02/2021 [id number] / / [id number] Insurance [employer]ITH[employer] * Guarantor: Marrow Transplant, Unv Bone Account Type Relation to Patient Date of Phone Billing Address Donor Bone Marrow Recipient [address] [place] [address] Bone Marrow Treatment Department [place] [phone] [facility] HMO/POS Care Teams Grill Chef Relationship Specialty Start Date End Date Melania Cormier [facility] [address], [address] [place] [address] PCP - General Family Medicine 04/21/20
--- OUTSIDE RECORDS SUMMARY | 2025-01-13 17:12 | XMS_ITS | Encounter Summary ---
Author Organization [facility] Address [address] [employer] [address] [address] Phone Care Team Providers Care Third Loader Name Role Phone Melania Cormier DO Unavailable Annette WallsM Unavailable Malou Peguero GENERAL OFFICE CLERK Unavailable Demetrio Jacobo DO Unavailable Jamil Schneider MD Unavailable Pam Perez MD Unavailable Kristina Mendoza DO Unavailable Kris Altamirano MD Unavailable Jacob Schneider MD Unavailable Aaliyah Maldonado MD Unavailable [phone] Doug Shoemaker MD Unavailable Melania Cormier DO Primary Care Provider [phone] Encounter Details Date Type Department Care Team (Late st Contact Info) Description 02/20/2018 Procedure Pass OR Admitting Dept - Virtual Department [address] [place] [address] Social History Tobacco Use Types [...] documented as of this encounter Care Teams Third Loader Relationship Specialty Start Date End Date Melania Cormier DO [address] [address] PCP - General 12/19/16 04/16/24 Melania Cormier DO [address] [address] Historical LMR Provider 12/18/16 Annette Walls CNM [address] [place] [address] Historical LMR Provider 12/18/16 2 Malou Peguero CNP 15 [facility], [address] [place] [address] Historical LMR Provider 12/18/16 03/12/21 Demetrio Jacobo DO 4 [facility], [facility] [address] Historical LMR Provider 12/18/16 03/12/21 Jamil Schneider MD [address] [place] [phone] [email or web address] Historical LMR Provider 12/18/16 03/12/21 Pam Perez MD 22 [facility] [address] [place] [address] [email or web address] Historical LMR Provider 12/18/16 Kristina Mendoza DO 30 [place] [address] Historical LMR Provider 12/18/16 2 Kris Altamirano MD 236 [facility] [address] [place] [phone] Historical LMR Provider 12/18/16 2 Jacob Schneider MD 234 [facility] [address] [place] [phone] [email or web address] Historical LMR Provider 12/18/16 03/12/21 Aaliyah Maldonado MD [address] [place] [phone] Historical LMR Provider 12/18/16 2 Doug Shoemaker MD [address] [place] [address] Historical LMR Provider 12/18/16 2 documented as of this encounter Additional Source Comments The information contained in this document represents components of the legal health record. It is not the complete legal health record.[facility]
--- OUTSIDE RECORDS SUMMARY | 2025-01-13 17:12 | XMS_ITS | Encounter Summary ---
Author Organization [facility] Address [address] [place] [address] Care Team Providers Care Sales Service Assistant Name Role Phone Melania Cormier Primary Care Provider [phone] Encounter Details Date Type Department Care Team (Late st Contact Info) Description 05/03/2020 Orders Only [facility] Interventional Radiology [address] [place], [place] [phone] Adia Mendenhall PA [address] [place], [place] [phone] Stem cell donor (Primary Dx) Social History [...] or need for rescheduling, in accordance with [facility] policies and [facility] guidelines. Request: Pheresis Catheter History [...] of this encounter Results * Due to [place] state law, this organization might not be sharing negative HIV tests. * COVID-19 PCR, Pre-Procedure (Asymptomatic), HEATING TECHNICIAN/OP/Saliva (05/14/2020 12:13 PM EST) SARS CoV 2 RNA, RT PCR Not Detected Not Detected THERMOF HER QUANT STUDIO 05/14/2020 7:54 PM EST [employer] [facility] [facility] Comment:A Not Detected (Nega [...] determined by the Molecular Virology Laboratory at [facility] under CLIA [id number]. They have not been cleared or approved by the U.S. Food and Drug Administration (FDA). FDA Policy for Diagnostic Tests for Coronavirus Disease-2019 during the Public Health Emergency issued May 19, 2019, is followed. us Adia [facility] BODY FLUIDS AND STOOLS ORDER CORWIN Final Result [facility] [address] [place] [address], documented in this encounter Visit Diagnoses Diagnosis Stem cell donor- Primary documented in this encounter Care Teams Sales Service Assistant Relationship Specialty Start Date End Date Melania Cormier [facility] 234 [facility], [address] [place] [address] PCP - General Family Medicine 04/21/20 documented as of this encounter
--- OUTSIDE RECORDS SUMMARY | 2025-01-13 17:12 | XMS_ITS | Clinical Summary ---
Author Organization [facility] Address [address] [address] Phone Care Team Providers Care Belt Measurer Name Role Phone Melania Cormier DO Unavailable [phone] Pam Perez MD Unavailable Allergies Active [...] this topic Medical Devices Implanted Type Area Homebirth Midwife Device Identifier Shelf Expiration Date Model / Serial / Lot Jaw Procedures Procedure Name Priority Date/Time Associated Diagnosis Comments PAP TEST Routine 03/20/2018 12:00 AM EST from Last 3 Months or Most Recently Relevant to Health Maintenance Results * Pap Smear (03/20/2018 12:00 AM EST) 03/20/2018 03/21/2018 12: 48 PM EST Narrative SEE NARRATIVE - 03/28/2018 12:36 PM EST [address] [address] Radio Interference Investigator: Lilli Bansal MD ASSOCIATE MANAGER AFFILIATE MARKETING Cytology Report FINAL DIAGNOSIS A. PAP SMEAR [...] 52, 56, 58, 59, 66, 68) by [employer] Onclarity HR-HPV analysis. Clinical correlation is advised. This HPV test was performed at [facility], [address] [place] [address]. This test has been FDA approved for SurePath cervical cytology specimens. The accuracy and precision of this test for all other specimen sources has been verified in the Cytopathology Laboratory of the [facility] and has not been cleared or approved by the U.S. Food and Drug Administration. Clinical correlation is advised. CLINICAL HISTORY Date of Last Menstrual Period: N/A Contraceptive History: IUD Other Clinical Conditions: Screening Pap SPECIMEN SOURCE A: PAP SMEAR (SUREPATH) CE Patient Name: OLESYA GODWIN : 1980 (Age: 37) Sex: F Institution: [facility] Location: [facility] Date of Collection: 03/20/2018 Date of Reported: 03/28/2018 12:36 Results to: Pam Perez MD Pam Perez MD CYTOLOGY ORDERABLES Final Result SEE NARRATIVE from Last 3 Months or Most Recently Relevant to Health Maintenance Insurance [employer] CHOICE [employer] CHOICE CHOICE CHOICE CHOICE CHOICE CHOICE [facility] CHOICE Advance Directives For more information, please contact: [phone] (9AM - 5PM [facility], Sunday-Sunday) * Full Code (Presumed) (Latest Code Status on File) Date Activated Date Inactivated Comments 02/20/2018 11:02 AM 02/20/2018 5:59 PM Care Teams Belt Measurer Relationship Specialty Start Date End Date Melania Cormier DO [address] [place] [address] [address] [place] [address] Historical LMR Provider 12/18/16 Pam Perez MD [address] [place] [address] [address] [place] [address] Historical LMR Provider 12/18/16 Additional Source Comments The information contained in this document represents components of the legal health record. It is not the complete legal health record.[facility]
== END 2025-01-13 16:45 | disposition home or self-care (01) ==
LOC: HO.HMCC 15:40
PROVIDERS: PCP Internal Medicine; Visit Provider Internal Medicine
DX: Z23 Encounter for immunization (principal)

== ENCOUNTER → 2025-01-13 15:39 | Outpatient (BNVA) | payer OTHER, SELFPAY | PROVIDERS: PCP Internal Medicine; Visit Provider Internal Medicine | DX: S50.812A Abrasion of left forearm, initial encounter (principal); W55.03XA Scratched by cat, initial encounter; Z23 Encounter for immunization; Z13.31 Encounter for screening for depression; Z13.39 Encounter for screening examination for other mental health and behavioral disorders | CPT/HCPCS: 90471; 90715; 96127 ==

== ENCOUNTER 2025-02-05 11:09 | Outpatient (AMB) | payer OTHER, SELFPAY ==
--- NOTE | 2025-02-05 11:11 | MHC.OFFVIS ---
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 It has been a few years since pre pandemic since she had a liquor bridge operator helper exam she is sexually active with the same partner for the last 5 years. She had her tubes tied when she was 37 years old she was very clear that she did not want to have children she had had a ParaGard IUD but had heavy menses and then she had a Mirena IUD but did not feel good on the hormones so she is much happier since she had her tubes tied. She has noticed that her periods are starting to get a little closer in the last 1 came it day 24 which was January 31. She sometimes is aware of when she is ovulating. She is up-to-date on her mammograms having had 1 earlier in the year. She will be seeing her primary care provider next week and we will be getting labs then. She did have a an episode a year to a go of having a very low sodium and had to be hospitalized for it and her Trileptal dose was decreased which made a difference. She is on losartan for her blood pressure and that is well-controlled. She has been noticing premenopausal symptoms such as increased chin hairs and hot flashes etc. [facility] Medical History (Updated 02/05/25 @ 12:08 by Hillary Stephens CNM) Acute respiratory disease Vitamin D deficiency Macrocytosis without anemia Family history of thyroid disorder Essential hypertension Lumbago with sciatica, right side Anxiety and depression ADD (attention deficit disorder) Surgical History Hx of tubal ligation Hx of reduction mammoplasty Family History Father Substance use disorder Lung cancer Generalized anxiety disorder Mother Thyroid disorder Maternal Grandfather Alcoholic Paternal Grandfather Substance use disorder Brother Leukemia Social History Housing: House Patient Tobacco Use Status: Former Tobacco user e-Cigarette/Vaping Use: Former Use service: No Current occupational status: student Cognitive needs: No Hearing needs: No Vision needs: No Female Reproductive History Menstrual Age of Menarche: 15 Duration of menses: 6-7 days Date of last menstrual period: 01/31/25 control method: none Total pregnancies: 0 History of abnormal pap smear: No Physical Exam Vital Signs: Last Vital Signs BP 128/88 02/05/25 11:16 BMI result Body Mass Index 34.4 Const General: healthy appearing, comfortable, no acute distress, well developed and alert Nutritional Appearance: average body habitus Orientation/consciousness: patient oriented x3 Limitations: no limitations HEENT Head: Yes normocephalic Neck Neck: Yes normal visual inspection Chest Chest palpation & inspection: normal inspection of the chest Breast/axilla inspection: normal inspection of the breasts and normal inspection of the axillae Breast/axilla palpation: normal palpation of the breasts and normal palpation of the axillae Resp Effort & Inspection: normal respiratory effort GI Inspection: Yes normal to inspection, No Abdominal wall edema and No distended Palpation (GI): Soft to palpation and nontender Other: External exam within normal limits vagina is pink and moist nulliparous cervix is pink smooth healthy appearing with fertile type mucus coming from os cervix is midposition mobile nontender uterus midposition mobile nontender adnexa nonenlarged nontender good tone with Kegel. General: Yes bladder normal to palpation External Female Exam: normal external appearance and normal appearance of the urethra Speculum Exam - Vagina: normal appearance of the vagina, normal palpation and normal vaginal discharge Speculum Exam - Cervix: normal appearance of the cervix, normal palpation and nontender Bimanual exam- vagina & uterus: normal bimanual exam, normal palpation, uterine size normal, bladder normal to palpation, consistency normal, normal palpation, uterine mobility normal, uterine shape normal, No Cervical tenderness present, non-tender and no cervical motion tenderness Bimanual Exam- Adnexa, other: normal adnexae, no masses, normal and No adnexal tenderness Neuro General: patient oriented x3 Assessment & Plan Assessment & Plan (1) Essential hypertension: Code(s): I10 - Essential (primary) hypertension Category: Medical (2) Well woman exam with routine gynecological exam: Code(s): Z01.419 - Encounter for gynecological examination (general) (routine) without abnormal findings Category: Medical (3) Encounter for gynecological examination with Papanicolaou smear of cervix: Code(s): Z01.419 - Encounter for gynecological examination (general) (routine) without abnormal findings Category: Medical (4) Encounter for screening examination for sexually transmitted disease: Code(s): Z11.3 - Encounter for screening for infections with a predominantly sexual mode of transmission Category: Medical (5) Perimenopausal symptoms: Code(s): N95.1 - Menopausal and female climacteric states Category: Medical Plan -----Discussed in this visit the following: healthy balanced diet, regular and consistent exercise, getting recommended health screens, doing the best she can for her particular health concerns, kegel exercises, pap smear screening and followup recommendations, mammography screening and SBE, normal changes in cycles in her life stage--- .---Discussed normal changes that happen premenapausally, perimenapausally, and postmenopausally, and ways to handle them. Discussed the normal variation, and the range of experiences that women experience. Discussed nutrition, health, need for exercise, both weight-bearing and aerobic. Also discussed the normal changes that happen with vaginal mucosal thinning and sensitivity, and simple more natural ways of handling these challenges. Discussed that today we did the Pap smear discussed the normal intervals every 5 years in her age group discussed and offered and did testing for gonorrhea chlamydia trichomoniasis as well as bacterial vaginosis and yeast discussed that the latter 2 are normal findings and do not need to be treated unless they are problematic to her. Offered screening for HIV hep B hep C and syphilis she will think about it and suggested that she could also ask her primary who will certainly be ordering lab work for her at the next visit and she could get everything done together. Coding Level of Care Code New Pt Prev Care 40-64y(52658) Diagnoses Essential hypertension I10 Well woman exam with routine gynecological exam Z01.419 Encounter for gynecological examination with Papanicolaou smear of cervix Z01.419 Encounter for screening examination for sexually transmitted disease Z11.3 Perimenopausal symptoms N95.1
[2025-02-05 11:16] VITALS: BP 128/88; BMI 34.4
== END 2025-02-05 13:29 | disposition home or self-care (01) ==
LOC: HO.HWS 11:10
PROVIDERS: PCP Internal Medicine; Visit Provider Advanced Practice Midwife
DX: Z01.419 Encounter for gynecological examination (general) (routine) without abnormal findings (principal); I10 Essential (primary) hypertension; Z11.3 Encounter for screening for infections with a predominantly sexual mode of transmission; N95.1 Menopausal and female climacteric states
CPT/HCPCS: 99386; 99459

== ENCOUNTER 2025-02-05 11:09 | Outpatient (REF) | payer OTHER, SELFPAY ==
--- OUTSIDE RECORDS SUMMARY | 2025-02-05 21:40 | XMS_ITS | Encounter Summary ---
Author Organization [facility] Address [address] [place] [address] Care Team Providers Care Antisqueak Applier Name Role Phone Rosalinda Cormierkatina Farley Primary Care Provider [phone] Encounter Details Date Type Department Care Team (Late st Contact Info) Description 05/07/2020 Orders Only [facility] [address] [place] [address] Mara Pate, PharmD [address] [place], [place] [phone] Social History Tobacco Use Types Packs/Day Years [...] on filedocumented in this encounter Care Teams Antisqueak Applier Relationship Specialty Start Date End Date Melania Cormier [facility] Medicine [address] [place] [address], [address] [place] [address] PCP - General Family Medicine 04/21/20 documented as of this encounter
--- OUTSIDE RECORDS SUMMARY | 2025-02-05 21:40 | XMS_ITS | Clinical Summary ---
Author Organization [facility] Address [address] [place] [address] Care Team Providers Care Pharmacy Scheduler Name Role Phone Melania Cormier Primary Care Provider [phone] Allergies No known active allergies Medications buPROPion [...] exists Mammogram 2021 Alcohol/Substance Use Screening 03/05/2024 Influenza Vaccine (#1) 2024 03/04/2020 COVID-19 Vaccine ( season) 2024 Hepatitis B Vaccines Completed 12/05/1993, 02/03/1993, 12/03/1992 Pneumococcal Vaccine: Pediatric (0-5 Years) and At-Risk Patients (6-50 Years) Aged Out No longer eligible based on patient's age to complete this topic Medical Devices Implanted Type Area Toy Consultant Device Identifier Shelf Expiration Date Model / Serial / Lot Catheter Glidepath Hemodialysis 14.5fr X 23cm - [id number] Implanted:Qty: 1 on 05/18/2020 by Alexandro Espinal MD at [facility] Catheter Right: Chest Wall [employer] [id number] 12/02/2021 [id number] / / [id number] Insurance [employer] * Guarantor: Marrow Transplant, Unv Bone Account Type Relation to Patient Date of Phone Billing Address Donor Bone Marrow Recipient [address] [place] [address] Bone Marrow Treatment Department [place] [phone] [facility] HMO/POS Care Teams Pharmacy Scheduler Relationship Specialty Start Date End Date Melania Cormier [facility] [address], [address] [place] [address] PCP - General Family Medicine 04/21/20
--- OUTSIDE RECORDS SUMMARY | 2025-02-05 21:40 | XMS_ITS | Encounter Summary ---
Author Organization [facility] Address [address] [place] [address] Care Team Providers Care Financial Associate Name Role Phone Melania Cormier Primary Care Provider [phone] Encounter Details Date Type Department Care Team (Late st Contact Info) Description 05/03/2020 Orders Only [facility] Interventional Radiology [address] [place], [place] [phone] Adia Mendenhall PA [address] [place], [place] [phone] Stem cell donor (Primary Dx) Social History [...] or need for rescheduling, in accordance with [facility] policies and [facility] guidelines. Request: Pheresis Catheter History of [...] of this encounter Results * Due to [place] state law, this organization might not be sharing negative HIV tests. * COVID-19 PCR, Pre-Procedure (Asymptomatic), REEFER TRUCK DRIVER/OP/Saliva (05/14/2020 12:13 PM EST) SARS CoV 2 RNA, RT PCR Not Detected Not Detected THERMOF HER QUANT STUDIO 05/14/2020 7:54 PM EST [facility] Comment:A Not Detected (Nega [...] determined by the Molecular Virology Laboratory at [facility] under CLIA [id number]. They have not been cleared or approved by the U.S. Food and Drug Administration (FDA). FDA Policy for Diagnostic Tests for Coronavirus Disease-2019 during the Public Health Emergency issued May 19, 2019, is followed. us Adia [facility] BODY FLUIDS AND STOOLS ORDER CORWIN Final Result [facility] [address] [place] [address], documented in this encounter Visit Diagnoses Diagnosis Stem cell donor- Primary documented in this encounter Care Teams Financial Associate Relationship Specialty Start Date End Date Melania Cormier [facility] Medicine [address] [facility], [address] [place] [address] PCP - General Family Medicine 04/21/20 documented as of this encounter
--- OUTSIDE RECORDS SUMMARY | 2025-02-05 21:40 | XMS_ITS | Encounter Summary ---
Author Organization [facility] Address [address] [employer] [address] [address] Phone Care Team Providers Care Structural Shop Helper Name Role Phone Melania Cormier DO Unavailable Annette WallsM Unavailable Malou Peguero BROOM MACHINE OPERATOR Unavailable Demetrio Jacobo DO Unavailable Jamil Schneider MD Unavailable Pam Perez MD Unavailable Kristina Mendoza DO Unavailable Kris Altamirano MD Unavailable Jacob Schneider MD Unavailable Aaliyah Maldonado MD Unavailable [phone] Doug Shoemaker MD Unavailable Melania Cormier DO Primary Care Provider [phone] Encounter Details Date Type Department Care Team (Late st Contact Info) Description 02/20/2018 Procedure Pass OR Admitting Dept - Virtual Department [address] [place] [address] Social History Tobacco Use Types [...] documented as of this encounter Care Teams Structural Shop Helper Relationship Specialty Start Date End Date Melania Cormier DO [address] [address] PCP - General 12/19/16 04/16/24 Melania Cormier DO [address] [address] Historical LMR Provider 12/18/16 Annette Walls CNM [address] [place] [address] Historical LMR Provider 12/18/16 2 Malou Peguero CNP 15 [facility], [address] [place] [address] Historical LMR Provider 12/18/16 03/12/21 Demetrio Jacobo DO 4 [facility] Orthopedics [facility] Sports Medicine, [facility] [place] [address] Historical LMR Provider 12/18/16 03/12/21 Jamil Schneider MD [address] [place] [phone] [email or web address] Historical LMR Provider 12/18/16 03/12/21 Pam Perez MD 22 [facility] [address] [place] [address] [email or web address] Historical LMR Provider 12/18/16 Kristina Mendoza DO [address] [place] [address] Historical LMR Provider 12/18/16 2 Kris Altamirano MD 236 [facility] [address] [place] [phone] Historical LMR Provider 12/18/16 2 Jacob Schneider MD 234 [facility] [address] [place] [phone] [email or web address] Historical LMR Provider 12/18/16 03/12/21 Aaliyah Maldonado MD [address] [place] [phone] Historical LMR Provider 12/18/16 2 Doug Shoemaker MD [address] [place] [address] Historical LMR Provider 12/18/16 2 documented as of this encounter Additional Source Comments The information contained in this document represents components of the legal health record. It is not the complete legal health record.[facility]
--- OUTSIDE RECORDS SUMMARY | 2025-02-05 21:40 | XMS_ITS | Encounter Summary ---
Author Organization [facility] Address [address] [address] Phone Care Team Providers Care Dinkey Motor Operator Name Role Phone Melania Cormier DO Unavailable Annette WallsM Unavailable Malou Peguero AUDITING SPECIALIST Unavailable Demetrio Jacobo DO Unavailable Jamil Schneider MD Unavailable Pam Perez MD Unavailable Kristina Mendoza DO Unavailable Kris Altamirano MD Unavailable Jacob Schneider MD Unavailable Aaliyah Maldonado MD Unavailable [phone] Doug Shoemaker MD Unavailable Melania Cormier DO Primary Care Provider [phone] Encounter Details Date Type Department Care Team (Late st Contact Info) Description 08/16/2018 Procedure Pass [place] Admitting Dept - Virtual Department [address] [place] [address] Social History Tobacco Use Types [...] documented as of this encounter Care Teams Dinkey Motor Operator Relationship Specialty Start Date End Date Melania Cormier DO [address] [place] [id number] PCP - General 12/19/16 04/16/24 Melania Cormier DO [address] [place] [id number] Historical LMR Provider 12/18/16 Annette Walls CNM [address] [place] [address] Historical LMR Provider 12/18/16 2 Malou Peguero CNP [address] [place] [address] Historical LMR Provider 12/18/16 03/12/21 Demetrio Jacobo DO [address] [place] [address] Orthopedics & Sports Medicine, [facility] [place] [address] Historical LMR Provider 12/18/16 03/12/21 Jamil Schneider MD 234 [facility] 7 [place] [address] [email or web address] Historical LMR Provider 12/18/16 03/12/21 Pam Perez MD [address] [address] [email or web address] Historical LMR Provider 12/18/16 Kristina Mendoza DO [address] [place] [address] Historical LMR Provider 12/18/16 2 Kris Altamirano MD [address] [place] [phone] Historical LMR Provider 12/18/16 2 Jacob Schneider MD [address] [place], [place] [address] [place] [address] [email or web address] Historical LMR Provider 12/18/16 03/12/21 Aaliyah Maldonado MD [address], [place] [phone] Historical LMR Provider 12/18/16 2 Doug Shoemaker MD [address] [place] [address] Historical LMR Provider 12/18/16 2 documented as of this encounter Additional Source Comments The information contained in this document represents components of the legal health record. It is not the complete legal health record.[facility]
--- OUTSIDE RECORDS SUMMARY | 2025-02-05 21:40 | XMS_ITS | Clinical Summary ---
Author Organization [facility] Address [email or web address] [address] Phone Care Team Providers Care Bulk Picker Name Role Phone Melania Cormier DO Unavailable [phone] Pam Perez MD Unavailable Allergies Active [...] this topic Medical Devices Implanted Type Area Paint Tinter Device Identifier Shelf Expiration Date Model / Serial / Lot Jaw Procedures Procedure Name Priority Date/Time Associated Diagnosis Comments PAP TEST Routine 03/20/2018 12:00 AM EST from Last 3 Months or Most Recently Relevant to Health Maintenance Results * Pap Smear (03/20/2018 12:00 AM EST) 03/20/2018 03/21/2018 12: 48 PM EST Narrative SEE NARRATIVE - 03/28/2018 12:36 PM EST [address] [address] Solutions Architect: Lilli Bansal MD RN NEW GRADUATE Cytology Report FINAL DIAGNOSIS A. PAP SMEAR [...] 52, 56, 58, 59, 66, 68) by [employer] Onclarity HR-HPV analysis. Clinical correlation is advised. This HPV test was performed at [facility], [address] [place] [address]. This test has been FDA approved for SurePath cervical cytology specimens. The accuracy and precision of this test for all other specimen sources has been verified in the Cytopathology Laboratory of the [facility] and has not been cleared or approved by the U.S. Food and Drug Administration. Clinical correlation is advised. CLINICAL HISTORY Date of Last Menstrual Period: N/A Contraceptive History: IUD Other Clinical Conditions: Screening Pap SPECIMEN SOURCE A: PAP SMEAR (SUREPATH) CE Patient Name: OLESYA GODWIN : 1980 (Age: 37) Sex: F Institution: [facility] Location: [facility] Date of Collection: 03/20/2018 Date of Reported: 03/28/2018 12:36 Results to: Pam Perez MD Pam Perez MD CYTOLOGY ORDERABLES Final Result SEE NARRATIVE from Last 3 Months or Most Recently Relevant to Health Maintenance Insurance [employer] CHO[employer] CHO[employer] CHOICE CHOICE CHOICE CHOICE CHOICE [facility] Advance Directives For more information, please contact: [phone] (9AM - 5PM [facility], Sunday-Sunday) * Full Code (Presumed) (Latest Code Status on File) Date Activated Date Inactivated Comments 02/20/2018 11:02 AM 02/20/2018 5:59 PM Care Teams Bulk Picker Relationship Specialty Start Date End Date Melania Cormier DO [address] [place] [address] 7 [place] [address] Historical LMR Provider 12/18/16 Pam Perez MD [address] [place] [address] [address] [place] [address] Historical LMR Provider 12/18/16 Additional Source Comments The information contained in this document represents components of the legal health record. It is not the complete legal health record.[facility]
[2025-02-07 02:07] LABS: Bacterial Vaginosis PCR POSITIVE (Negative); Candida Group PCR NOT DETECTED (Not Detect); Candida glab krusei PCR NOT DETECTED (Not Detect); Trichomonas vaginalis PCR NOT DETECTED (Not Detect)
[2025-02-07 02:39] LABS: CT PCR NOT DETECTED (Not Detect.); NG PCR NOT DETECTED (Not Detect.)
== END 2025-02-05 11:10 | disposition home or self-care (01) ==
LOC: HO.LNP 11:09
PROVIDERS: PCP Internal Medicine; Visit Provider Advanced Practice Midwife
DX: Z01.419 Encounter for gynecological examination (general) (routine) without abnormal findings (principal); Z11.51 Encounter for screening for human papillomavirus (HPV); Z20.2 Contact with and (suspected) exposure to infections with a predominantly sexual mode of transmission; N95.1 Menopausal and female climacteric states; I10 Essential (primary) hypertension; Z98.51 Tubal ligation status; Z87.891 Personal history of nicotine dependence
CPT/HCPCS: 81515; 87491; 87591; 87626; 88175

== ENCOUNTER 2025-02-12 08:27 | Outpatient (AMB) | payer OTHER, SELFPAY ==
[2025-02-12 08:36] VITALS: BP 110/78; PULSE 85; RESP 16; TEMP 36.9; O2SAT 97; BMI 34.4
--- NOTE | 2025-02-12 08:36 | MHC.PC.OV ---
Vital Signs 02/12/25 08:36 Height 6 ft Weight 254 lb BMI 34.4 BP 110/78 Blood Pressure Location Rt brachial Position Sitting Respiration 16 Pulse 85 Pulse Source Pulse Oximeter Temp 98.5 F Temp Source Oral Pulse Oximetry (%) 97 Oxygen Delivery Method Room Air Intake Visit Reasons: Annual PE Intake Note: Pt is here today for her PE: Last mammogram 01/18/23, papsmear 02/05/25 Calibration Laboratory Technician Required: No Is last menstrual period known: Yes Last menstrual period: 01/31/25 Allergies No Known Allergies Allergy (Verified 02/12/25 08:46) Medication List - Last Reconciled 02/12/25 by Ewa Cano MD bupropion HCl XL 300 mg PO DAILY clonazepam 0.5 mg PO BID PRN dextroamphetamine-amphetamine 20 mg 1 tab PO BID losartan 50 mg PO DAILY oxcarbazepine orally; Tobacco use date assessed: 02/12/25 Dental Screening Dental Screen Date: 02/12/25 Did you have a dental visit in the last 12 months?: Yes Did you have a dental problem in the last 6 months where you did not have access to dental care?: No Was dental information given to patient?: Patient has dentist HPI Annual PE HPI Details 44-year-old lady here today for her physical exam. She reports significant weight gain of approximately 50 pounds over the past few years, which she finds frustrating. She previously tried a compounded GLP-1 agonist (Zepbound) for 3 months, which was obtained [id number] through the [employer], and while she did lose weight, she stopped due to the high cost and side effects including severe nausea and cessation of her menses. Her periods returned to normal after discontinuing the medication,but started gaining weight again. The patient also reports experiencing lower back pain and morning soreness in her legs, knees, and ankles,likely osteoarthritis, which worsens with her increased weight. She acknowledges a need to start exercising, particularly weight-bearing exercises to build bone strength, and has considered joining a gym with a friend. She used to be a jogger but stopped due to knee pain . Her psychiatric history includes ADHD, depression with anxiety, currently being seen by Olesya Li at [facility] via telehealth. Her current medications include oxcarbazepine 450 mg daily (300 mg AM, 150 mg PM), Adderall 20 mg, bupropion 300 mg in the morning, and clonazepam 0.5 mg as needed. The oxcarbazepine dose was previously higher, causing side effects of confusion and a metallic taste, but these have resolved with the dose reduction. She has essential hypertension, currently on losartan 50 mg in the morning, with good blood pressure. Past lab work showed low sodium, a side effect of oxcarbazepine, and a slightly elevated liver enzyme. Her last mammogram in 2022 required a follow-up , which came back with benign findings.. She has a family history of lung cancer in her father (a former smoker) and thyroid issues in her mother. 1 [facility] Medical History (Updated 02/14/25 @ 13:54 by Ewa Cano MD) Acute respiratory disease Vitamin D deficiency Macrocytosis without anemia Family history of thyroid disorder Essential hypertension Anxiety and depression ADD (attention deficit disorder) Surgical History Hx of tubal ligation Hx of reduction mammoplasty Family History Father Substance use disorder Lung cancer Generalized anxiety disorder Mother Thyroid disorder Maternal Grandfather Alcoholic Paternal Grandfather Substance use disorder Brother Leukemia Social History Housing: House Patient Tobacco Use Status: Former Tobacco user e-Cigarette/Vaping Use: Former Use service: No Current occupational status: student Cognitive needs: No Hearing needs: No Vision needs: No Female Reproductive History Menstrual Age of Menarche: 15 Date of last menstrual period: 01/31/25 Questionnaire PHQ-9 Over the last 2 weeks, how often have you been bothered by any of the following problems? 1. Little interest or pleasure in doing things: several days 2. Feeling down, depressed, or hopeless: several days 3. Trouble falling or staying asleep, or sleeping too much: not at all 4. Feeling tired or having little energy: several days 5. Poor appetite or overeating: not at all 6. Feeling bad about yourself - or that you are a failure or have let yourself or your family down: several days 7. Trouble concentrating on things, such as reading the newspaper or watching television: several days 8. Moving or speaking so slowly that other people could have noticed. Or the opposite - being so fidgety or restless that you have been moving around a lot more than usual: not at all 9. Thoughts that you would be better off or of hurting yourself in some way: not at all Total score: 5 Depression Screening Interpretation: Positive (Currently followed by psychiatrist via telehealth and on medications) Depression Screening Follow-up: Existing condition, In treatment and Community Mental Health Worker F/U Depression Screening Done: Yes Source: Developed by Drs. Jamil Holland, Elyse Knox, Michael Molina and colleagues, with an educational charanjit from [employer]. Thrive Questionnaire Date Thrive assessed: 01/10/25 I am a: Patient What is your living situation today?: I have a steady place to live Within the past 12 months, did the food you bought not last and you didn't have the money to get more?: Never true Within the past 12 months, did you worry whether your food would run out before you got money to buy more?: Never true Do you have trouble paying for medicines?: No Do you have trouble getting transportation to medical appointments?: No Do you have trouble paying your heating and electricity bill?: No Do you have trouble taking care of your child, family member or friend?: No Do you have trouble with day-to-day activities such as bathing, preparing meals, shopping, managing finances, etc.?: No Are you currently unemployed and looking for a job?: No Are you interested in more education?: No Please select the resources that you would like help with: None Currently or been in a relationship where the following occur: No concerns reported THRIVE Score: 0 AUDIT C Alcohol Use Questionnaire (AUDIT-C) 1. How often do you have a drink containing alcohol?: Never 3. How often do you have six or more drinks on one occasion?: Never Total Score: 0 TASNEEM-7 AMB Questionnaire TASNEEM-7 Date TASNEEM - 7 assessed: 01/13/25 Feeling nervous, anxious, or on edge: 1 = Several days Not being able to stop or control worryin = Several days Worrying too much about different things: 1 = Several days Trouble relaxin = Several days Being so restless that it is hard to sit still: 1 = Several days Becoming easily annoyed or irritable: 1 = Several days Feeling afraid as if something awful might happen: 0 = Not at all Total TASNEEM-7 score (0-4 normal; 5-9 mild; 10-14 moderate; 15-21 severe): 6 Source: Developed by Drs. Jamil Holland, Elyse Knox, Michael Molina and colleagues, with an educational charanjit from [employer]. TASNEEM-7 Assessment Billing TASNEEM-7 Assessment Tool: TASNEEM-7 Assessment 40489 Review of Systems Const Denies fatigue and Denies headache(s) Eyes Denies change in vision ENT Denies dizziness, Denies headache(s) and Denies nasal congestion Card Denies chest pain, Denies lightheadedness, Denies palpitations and Denies dyspnea Resp Denies chest congestion, Denies cough and Denies dyspnea GI Denies abdominal pain, Denies change in bowel habits and Denies heartburn Denies urinary frequency, Denies dysuria and Denies urinary urgency Musc Reports no additional complaints Skin/Breast Denies breast pain, Denies breast mass, Denies lesions and Denies rash Neuro Denies dizziness and Denies headache(s) Psych Reports as per HPI Endo Denies fatigue, Denies polydipsia, Denies polyuria and Denies palpitations Tigre/Lymph Reports no additional complaints Aller/Immun Reports no additional complaints Physical exam (Primary Care) Vital Signs: Last Vital Signs Temp 98.5 F 02/12/25 08:36 Pulse 85 02/12/25 08:36 Resp 16 02/12/25 08:36 BP 110/78 02/12/25 08:36 Pulse Ox 97 02/12/25 08:36 Oxygen Delivery Method Room Air 02/12/25 08:36 BMI result Body Mass Index 34.4 Tobacco/Smoking Status: Tobacco use Status Tobacco use date assessed 02/12/25 02/12/25 08:41 Patient Tobacco Use Status Former Tobacco user 02/12/25 08:37 e-Cigarette/Vaping Use Former Use 02/12/25 08:37 PHQ-9: PHQ-9 Score PHQ-9: Total score 5 02/14/25 13:47 Depression Screening Interpretation: Positive (Currently followed by psychiatrist via telehealth and on medications) Depression Screening Follow-up: Existing condition, In treatment and Community Mental Health Worker F/U Thrive Assessment: Date of Thrive Assessment Date Thrive assessed 01/10/25 02/12/25 08:37 Currently or been in a relationship where the following occur: No concerns reported Const General: no acute distress and alert Orientation/consciousness: patient oriented x3 HENMT Head: Yes normocephalic Eyes General: appearance normal, both eyes and all related structures Neck Neck: Yes full ROM, Yes no lymphadenopathy and Yes supple Chest Breast/axilla inspection: normal inspection of the breasts Breast/axilla palpation: normal palpation of the breasts Resp Effort & Inspection: normal respiratory effort and able to speak in complete sentences Auscultation: clear to auscultation bilaterally Cardio Rate: regular rate Rhythm: regular rhythm Heart sounds: S1 normal heart sound present and S2 normal heart sound present GI Palpation (GI): Soft to palpation, nontender, no guarding and no masses Auscultation: normal bowel sounds General: Yes no CVA tenderness Back/Spine/Pelvis Back: no CVA tenderness and No back tenderness Thoracic/Lumbar Spine: straight leg raise negative bilaterally Skin General skin exam: no rashes or lesions noted Neuro General: patient oriented x3, gait normal, moves all extremities, no focal motor deficits and CN's II-XI intact bilaterally Cognition (Neuro): normal cognition Gait exam (Neuro): Normal gait present Motor exam (neuro): 5/5 motor strength present throughout Extrem General: Yes normal to inspection, Yes full ROM, Yes no joint enlargement, Yes no pedal edema and Yes normal gait Psych Appearance: grossly normal and well kempt Mental Status: mental status grossly normal Speech and movement: Normal speech and movement present Affect: normal affect Office Procedures Flu Questionnaire Does the patient have a severe egg allergy?: No Does the patient have severe life threatening allergies?: No Does the patient have a fever or illness today?: No Has the patient ever had Guillain-Madison Syndrome?: No Has the patient ever had any past reaction to a flu shot?: No Immunizations Fluarix [id number] (PF) 45 mcg (15 mcg x 3)/0.5 mL IM syringe Performing Provider: Ewa Cano MD Performing Location: [facility] Administered by: Annette Perez CMA on 02/12/25 08:47 Dose Route Admin Location Dispensed Lot Number Expiration Date [employer] 0.5 mL IM Right Deltoid 0.5 mL [id number] 09/01/25 52531-662-03 Function Space VIS Given Date VIS Provided VIS Publication Date 02/12/25 Single Vaccine 24 Eligibility Eligibility Date Funding Source Not [facility] Eligible 02/12/25 Private Coding Level of Care Code Est Pt Prev Care 40-64y(61520) Diagnoses Annual visit for general adult medical examination with abnormal findings Z00.01 Attention deficit hyperactivity disorder (ADHD), unspecified ADHD type F90.9 Attention deficit-hyperactivity disorder type: unspecified Hyperactivity presence: present Essential hypertension I10 Anxiety and depression F41.9; F32.A Acute bilateral low back pain without sciatica M54.50 Chronicity: acute Back pain laterality: bilateral Sciatica presence: without sciatica Additional Codes TASNEEM-7 Assessment Billing - TASNEEM-7 Assessment Tool: TASNEEM-7 Assessment 06294 ([id number]) Assessment & Plan Assessment & Plan (1) Annual visit for general adult medical examination with abnormal findings: Code(s): Z00.01 - Encounter for general adult medical examination with abnormal findings Plan: Will check appropriate labs. Recommended dental visit every 6 months and regular eye exams, at least every 2 years. Take adequate calcium in diet and vitamin-D 3 at 2000 IU per cap once a day, in addition to weight-bearing exercises to help maintain good muscle tone and weight control. Instructed to do self-breast exam, and ordered her yearly mammogram . Flu vaccine given today, advised to schedule an appointment for her routine Pap and pelvic exam with her OBGYN (2) ADD (attention deficit disorder): Code(s): F98.8 - Other specified behavioral and emotional disorders with onset usually occurring in childhood and adolescence Category: Medical Qualifiers: Attention deficit-hyperactivity disorder type: unspecified Hyperactivity presence: present Qualified Code(s): F90.9 - Attention-deficit hyperactivity disorder, unspecified type Plan: Followed by her psychiatrist, currently on Adderall (3) Essential hypertension: Code(s): I10 - Essential (primary) hypertension Category: Medical Plan: Blood pressure at goal of less than 130/80. Continue losartan 50 mg once a day, refill sent Reinforced importance of following a low sodium diet, getting regular exercise, and lowering stress levels. (4) Anxiety and depression: Code(s): F41.9 - Anxiety disorder, unspecified; F32.A - Depression, unspecified Category: Medical Plan: Currently followed by online Psychiatry, currently on bupropion, clonazepam and oxcarbazepine (5) Lumbago: Code(s): M54.50 - Low back pain, unspecified Qualifiers: Chronicity: acute Back pain laterality: bilateral Sciatica presence: without sciatica Qualified Code(s): M54.50 - Low back pain, unspecified Plan: May take Tylenol as needed, recommend starting an exercise regimen, joining a gym to help with improving core strength and weight loss Orders: Orders Influenza [id number] Immunization 02/12/25 Z23 - Encounter for immunization Influenza [id number] Immunization 02/12/25 Z23 - Encounter for immunization TSH reflex Free T4 02/12/25 E55.9 - Vitamin D deficiency, unspecified, E87.1 - Hypo-osmolality and hyponatremia, F90.9 - Attention-deficit hyperactivity disorder, unspecified type, I10 - Essential (primary) hypertension, N95.1 - Menopausal and female climacteric states, Z83.49 - Family history of other endocrine, nutritional and metabolic diseases Vitamin D 25-OH Total 02/12/25 E55.9 - Vitamin D deficiency, unspecified, E87.1 - Hypo-osmolality and hyponatremia, F90.9 - Attention-deficit hyperactivity disorder, unspecified type, I10 - Essential (primary) hypertension, N95.1 - Menopausal and female climacteric states, Z83.49 - Family history of other endocrine, nutritional and metabolic diseases MM tomosynthesis screening BI 02/12/25 Z12.31 - Encounter for screening mammogram for malignant neoplasm of breast Lipid Panel 02/12/25 E55.9 - Vitamin D deficiency, unspecified, E87.1 - Hypo-osmolality and hyponatremia, F90.9 - Attention-deficit hyperactivity disorder, unspecified type, I10 - Essential (primary) hypertension, N95.1 - Menopausal and female climacteric states, Z83.49 - Family history of other endocrine, nutritional and metabolic diseases Comprehensive Adkins. Panel Fast 02/12/25 E55.9 - Vitamin D deficiency, unspecified, E87.1 - Hypo-osmolality and hyponatremia, F90.9 - Attention-deficit hyperactivity disorder, unspecified type, I10 - Essential (primary) hypertension, N95.1 - Menopausal and female climacteric states, Z83.49 - Family history of other endocrine, nutritional and metabolic diseases Medications: New Fluarix (PF) (flu vac ts (6mos up)-PF) 0.5 mL IM ONCE 0.5 mL 0RF NS Z23 - Encounter for immunization
== END 2025-02-12 09:08 | disposition home or self-care (01) ==
LOC: HO.HMCC 08:28
PROVIDERS: PCP Internal Medicine; Visit Provider Internal Medicine
DX: Z23 Encounter for immunization (principal)

== ENCOUNTER → 2025-02-12 08:27 | Outpatient (BNVA) | payer OTHER, SELFPAY | PROVIDERS: PCP Internal Medicine; Visit Provider Internal Medicine | DX: Z00.01 Encounter for general adult medical examination with abnormal findings (principal); F90.9 Attention-deficit hyperactivity disorder, unspecified type; I10 Essential (primary) hypertension; F41.9 Anxiety disorder, unspecified; F32.A Depression, unspecified; M54.50 Low back pain, unspecified; Z23 Encounter for immunization; Z13.39 Encounter for screening examination for other mental health and behavioral disorders | CPT/HCPCS: 90471; 90656; 96127; 99396 ==